=== PATIENT | male | born 1965 | race Caucasian/White ===

== ENCOUNTER → 2018-07-31 10:09 | Outpatient (CLI) | payer OTHER, SELFPAY ==
[2018-07-31 12:12] LABS: T4 Free Direct 0.85 ng/dL (0.76-1.46)
[2018-07-31 12:13] LABS: Hemoglobin A1c 5.5 % (4.2-6.3)
== END ==
PROVIDERS: Family Provider Family Medicine; PCP Family Medicine; Visit Provider Family Medicine
DX: E78.5 Hyperlipidemia, unspecified (principal); R73.01 Impaired fasting glucose
CPT/HCPCS: 36415; 83036; 84439; 84443

== ENCOUNTER → 2018-08-03 12:23 | Outpatient (CLI) | payer OTHER, SELFPAY ==
--- NOTE | 2018-08-03 12:26 | RAD_ITS ---
STUDY: X-RAY - LUMBAR SPINE REASON FOR EXAM: Male, 52 years old. Bilateral foot burning, neuropathy. TECHNIQUE: 5 view(s) of the lumbar spine were obtained. COMPARISON: 5 views of the lumbar spine June 14, 2006. Reports of that study not available for review at the time of this dictation FINDINGS: Normal lumbar lordosis. There is no substantial scoliosis. Grade 1 spondylolisthesis at L4-5 has worsened since previous exam. Metallic and well corticated invaginations of the anterior superior L2 and L3 vertebral endplates consistent with benign Schmorl's nodes. Anterior endplate spurring at the visualized lower thoracic levels and at L4-5 has mildly progressed since previous exam. Stable mild degenerative disc height narrowing at L4-5 and L5-S1. There is no demonstrated fracture. Degenerative arthroses of the lumbar facets remain most severe at L4-5. There are early degenerative changes of the upper bilateral sacral iliac joints. The soft tissue structures are unremarkable. RAD/L/S Spine Min 4 Views IMPRESSION: Degenerative changes of the spine, as detailed above, progressed since 2005. Electronically Signed: Byron Howell MD at 18:34 EDT , Service support ,
== END ==
PROVIDERS: Family Provider Family Medicine; PCP Family Medicine; Referring Provider Family Medicine; Visit Provider Family Medicine
DX: M54.5 Low back pain (principal); G57.93 Unspecified mononeuropathy of bilateral lower limbs
CPT/HCPCS: 72110

== ENCOUNTER 2018-08-17 07:25 | Day surgery (SDC) | payer OTHER, SELFPAY ==
[2018-08-17 07:41] VITALS: BP 130/83; PULSE 61; RESP 14; TEMP 36.7; O2SAT 97; BMI 30.6
--- NOTE | 2018-08-17 08:47 | HP.PCM_ITS ---
Past Medical/Surgical History - Planned Operation Planned Operative Procedure/s: cscope open access Date of Operative Procedure: 08/17/18 Permit Signed: No S.O.S: No Is This Patient Having a Total Joint: No - Previous Hospitalizations/Surgeries HX Hospitalizations: Yes - many yrs ago HX of Surgeries: 1992 right rtc repair. 1990 nasal fx Any Problems With Anesthesia: No You/Your Family Experience Fever (Hyperthermia) With Anes: No Cholinesterase deficiency: No - Cardiovascular Hx Chest Pain within Last 2 months: No Hx of Irregular Heartbeat and/or Afib: No Hx Heart Attack: No Hx Congestive Heart Failure: No Hx Rheumatic Fever: No Hx Hypertension: No Hx Internal Defibrillator: No Hx Pacemaker: No Hx Cardiac Catheterization: No Hx Cardiac Surgery/Stents/Etc.: No Hx Stress Test: No HX Edema: No Hx Pain in Legs when Walking/Leg Cramps: Yes - foot pain and lower back pain - Respiratory Chronic Cough: No HX of Shortness of Breath: No Hoarseness: No Hx Chronic Obstructive Pulmonary Disease (COPD): No Hx Asthma: No Hx Emphysema: No Hx Sleep Apnea: No Hx Oxygen Use at Home: No Hx Respiratory Tract Infection/Cold (presently): No Do You Snore Loudly (louder than talking or can be heard): No Do You Often Feel Tired/ Fatigued/ Sleepy Dring Daytime?: No Has Anyone Observed You Stop Breathing During Sleep?: No Result (for STOP score): Negative Hx Smoking: No Smoking Status: Never smoker - Gastrointestinal Hx Gastroesophageal Reflux: No Hx Gastrointestinal Disorders: No Hx Gastrointestinal Bleed: No Hx Ulcer: No Hx Hiatal Hernia: No Difficulty Chewing/Swallowing: No Recent Onset of Swallowing Problems: No Special diet followed at home: No Hx Unplanned Weight Loss of 20#: No HX Unplanned Weight Gain of 20#: No - Neurological Hx Seizures: No HX Syncope/Blackout Spells/Unconsciousness: No Hx CVA/Stroke: No Hx Transient Ischemic Attacks (TIA): No Hx Multiple Sclerosis: No Hx Parkinson's Disease: No Hx Head/Neck Injury: Yes - cervical neck fx in high school Hx Headaches: No Hx Back Injury/Pain: Yes - lower back pain/numbness to foot at times Recent Onset of Speech Difficulty: No Restless Legs: No Does patient have nerve stimulator: No Patient instructed to have device shut off: No Rep notified?: No - Blood Disorder Hx Leukemia: No Bleeding Tendencies: No Hx Deep Vein Thrombosis: No Hx High Cholesterol: Yes - on med Blood Transmitted Disease: No Hx Hepatitis: No Hx Cirrhosis: No Hx Anemia: No Hx Blood Disorders: No - Genitourinary Hx Renal Disease: No - Musculoskeletal Hx Arthritis: No Hx Rheumatoid Arthritis: No Hx Gout: No Recent Onset of an Orthopedic Problem: No - Endocrine Hx Diabetes: No Thyroid Disease: No Hx Steroid Therapy: No - Psycho/Social Hx Substance Use: No Hx Alcohol Use: Yes - occ Hx Anxiety: No Hx Depression: No Mental Illness: No Hx Dementia: No - Miscellaneous Hx Cancer: No Recent Exposure to Contagious Disease: No Active MRSA: No Hx of C-Diff: No Any Loose Teeth: No Allergies clarithromycin [From Biaxin] Allergy (Verified 08/17/18 07:40) Hives - Discharge Is Pt Admitted From a Correction, or a Custodial: No Who Could Help: family After D/C, Where Do you Plan to Go: Return Home - Physical Exam General: Alert, Oriented x3, Cooperative Lungs: Normal air movement Cardiovascular: Regular rate, Regular Rhythm Abdomen: Soft, Non Tender, Non-Distended Vital Signs Temp Pulse Resp BP Pulse Ox 98.1 F 61 14 130/83 H 97 08/17/18 07:41 08/17/18 07:41 08/17/18 07:41 08/17/18 07:41 08/17/18 07:41 Oxygen Delivery Method Room Air Weight: 231 lb 14.821 oz Body Mass Index (BMI) 30.6 Assessment/Plan Patient is a 52-year-old male for screening colonoscopy 1. Patient reports he is having no issues at this time. He is having no abdominal pain or blood in his stool. He has no family history of colon cancer but he does have a brother with Crohn's disease. He has never had a colonoscopy in the past. 2. I explained endoscopy in detail to the patient. I explained the risks including but not limited to stroke or heart attack with anesthesia, perforation of the GI tract, bleeding, infection. I explained that any of these could necessitate further emergency surgery. The patient understands and all questions were answered sufficiently. The patient wishes to proceed with procedure. Ab Rajan MD Pager: [facility] [address] [place] [address], [address] [place] [address] Office: Surgery Risks - Colonoscopy Risks Include but are not Limited To: Risks include but are not limited to: Bleeding, perforation requiring further surgery, inability to complete colonoscopy requiring barium enema.
[2018-08-17 09:14] VITALS: BP 116/79; BP 130/83; PULSE 70; RESP 16; TEMP 36.6; O2SAT 96
--- NOTE | 2018-08-17 09:18 | OP.ENDO_ITS ---
Patient Name: Kelvin Rhodes Procedure Date: 08/17/2018 8:48 AM Date of : 1965 Age: 52 Procedure: Colonoscopy Indications: Screening for colorectal malignant neoplasm Providers: Ab Rajan MD Referring MD: Ab Rajan MD Medicines: Monitored Anesthesia Care Patient Profile: This is a 52 year old male. Last Colonoscopy: none. The patient's first colonoscopy is today. Complications: No immediate complications. Procedure: Pre-Anesthesia Assessment: - Prior to the procedure, a History and Physical was performed, and patient medications and allergies were reviewed. The patient's tolerance of previous anesthesia was also reviewed. The risks and benefits of the procedure and the sedation options and risks were discussed with the patient. All questions were answered, and informed consent was obtained. Prior Anticoagulants: The patient has taken no previous anticoagulant or antiplatelet agents. After reviewing the risks and benefits, the patient was deemed in satisfactory condition to undergo the procedure. After I obtained informed consent, the scope was passed under direct vision. Throughout the procedure, the patient's blood pressure, pulse, and oxygen saturations were monitored continuously. The colonoscope was introduced through the anus and advanced to the cecum, identified by appendiceal orifice and ileocecal valve. The colonoscopy was performed without difficulty. The patient tolerated the procedure well. The quality of the bowel preparation was good. Scope In: 8:56:19 AM Scope Withdrawal Time 0 hours 6 minutes 24 seconds Scope Out: 9:08:01 AM Total Procedure Duration Time 0 hours 11 minutes 42 seconds Findings: The entire examined colon appeared normal on direct and retroflexion views. Impression: - The entire examined colon is normal on direct and retroflexion views. - No specimens collected. Recommendation: - Discharge patient to home. - Resume previous diet. - Continue present medications. - Repeat colonoscopy in 10 years for screening purposes. Procedure Code(s): --- Professional --- 63518, PT, Colonoscopy, flexible; diagnostic, including collection of specimen(s) by brushing or washing, when performed (separate procedure) Diagnosis Code(s): --- Professional --- Z12.11, Encounter for screening for malignant neoplasm of colon CPT copyright 2017 [employer]. All rights reserved. The codes documented in this report are preliminary and upon slicing machine feeder review may be revised to meet current compliance requirements. Ab Rajan MD 08/17/2018 9:17:45 AM This report has been signed electronically. Number of Addenda: 0 Note Initiated On: 08/17/2018 8:48 AM
[2018-08-17 09:19] VITALS: BP 109/87; BP 130/83; PULSE 66; RESP 16; O2SAT 100
[2018-08-17 09:24] VITALS: BP 122/91; BP 130/83; PULSE 63; RESP 16; O2SAT 96
[2018-08-17 09:29] VITALS: BP 130/83; BP 131/95; PULSE 62; RESP 16; TEMP 37.2; O2SAT 96
[2018-08-17 09:58] VITALS: BP 130/83
== END 2018-08-17 10:00 | disposition home or self-care (01) ==
LOC: EN 07:26 → AC 07:27
PROVIDERS: Family Provider Family Medicine; PCP Family Medicine; Referring Provider Surgery; Visit Provider Surgery
PROC: 0DJD8ZZ Inspection of Lower Intestinal Tract, Via Natural or Artificial Opening Endoscopic (ICD-10-PCS; CPT 45378; principal; 2018-08-17 08:25)
DX: Z12.11 Encounter for screening for malignant neoplasm of colon (principal); E78.00 Pure hypercholesterolemia, unspecified; Z79.899 Other long term (current) drug therapy
CPT/HCPCS: 45378; J7120

== ENCOUNTER → 2019-03-06 | Outpatient (CLI) | payer OTHER, SELFPAY ==
--- NOTE | 2019-03-06 10:41 | NEURO_ITS ---
NCS and/or EMG Patient Report Ordering Doctor: Hilario Rogers DATE OF SERVICE: 03/06/19 This is a EMG and nerve conduction study of the bilateral lower extremities performed on this 53-year-old male with a one-year history of back discomfort associated with discomfort in his feet and legs. He also has cramping in his c detention muscles. There is no history of diabetes or significant alcohol intake, and he is healthy otherwise. He says he has had plain films of his lower back which demonstrated degenerative changes. Bilateral lower extremity sensory and motor nerve conduction studies performed. The common peroneal motor conduction velocities are suppressed bilaterally with prolonged latencies and reduced amplitudes. The tibial motor conduction velocities are borderline with prolonged latencies and low amplitudes. The sural sensory and medial and lateral plantar sensory distal latencies and amplitudes are relatively preserved. F-wave responses from the tibial and common peroneal nerves bilaterally are prolonged and there is suppression of tibial H reflex responses bilaterally. Bilateral lower extremity needle electromyography is performed. Muscles evaluated included the extensor digitorum brevis, abductor hallucis, medial gastrocnemius, anterior tibialis, vastus medialis and vastus lateralis muscles. The small muscles of the feet did demonstrate large motor units, this abnormality resolved more proximally consistent with length dependent polyneuropathy. In addition there is 1-2+ fibrillation potentials in the left medial gastrocnemius and 1+ fibrillation potentials in the right medial gastrocnemius. All other muscles more approximately demonstrated absence of pathologic spontaneous activity. Impression: This is an abnormal electrophysiologic study of the bilateral lower extremities consistent with S1 radiculopathy with superimposed peripheral neuropathy. Other investigations could include an MRI of the lumbar spine as well as neuropathy studies including liver panel, complete metabolic panel, serum and urine protein electrophoresis as well as inflammatory markers.
== END | disposition home or self-care (01) ==
LOC: PSN 07:45
PROVIDERS: Family Provider Family Medicine; PCP Family Medicine; Referring Provider Podiatrist; Visit Provider Podiatrist
DX: G62.9 Polyneuropathy, unspecified (principal)
CPT/HCPCS: 95886; 95911

== ENCOUNTER → 2019-07-02 | Outpatient (CLI) | payer OTHER, SELFPAY ==
--- NOTE | 2019-07-02 12:36 | MRI_ITS ---
STUDY: MRI LUMBAR SPINE WITHOUT CONTRAST REASON FOR EXAM: Male, 53 years old. Low back pain. Numbness. TECHNIQUE: Standardized fat and water weighted pulse sequences were obtained in the sagittal and axial planes. COMPARISON: X-rays dated August 03, 2018. FINDINGS: Lumbar lordosis preserved. No significant scoliosis. Conus medullaris terminates high at the T11-12 level. No acute fracture line. No acute dislocation. No acute bone destruction. Multiple level diffuse endplate spondylosis with Schmorl's nodes. T12-L1: Mild disc desiccation. Facet joint arthrosis. Normal central canal and bilateral lateral recesses. Normal bilateral intervertebral neural foramina. L1-2: Disc bulge with mild central canal narrowing. Facet joint arthrosis. Normal bilateral lateral recesses. Bilateral neural foraminal narrowing without impingement. L2-3: Disc bulge with moderate central narrowing. Facet joint arthrosis. Bilateral lateral recess narrowing without impingement. Bilateral neural foraminal narrowing without impingement. Epidural fat contributes to central canal narrowing. L3-4: Disc bulge with moderate/severe central canal narrowing. Facet joint arthrosis. Bilateral lateral recess narrowing with impingement. Bilateral neural foraminal narrowing with impingement on the right. Epidural fat contributes to central canal narrowing. L4-5: Disc bulge/uncovering with severe central canal narrowing. Facet joint arthrosis. Bilateral lateral recess narrowing with impingement. Bilateral neural foraminal narrowing with early bilateral nerve root contact. Grade 1 spondylolisthesis. L5-S1: Disc bulge with mild central canal narrowing. Facet joint arthrosis. Normal bilateral lateral recesses. Bilateral neural foramina narrowing without impingement. Normal paraspinal muscles. Normal aorta. Normal retroperitoneum. MRI/Spine Lumbar (Routine) IMPRESSION: Multilevel intervertebral disc disease with severe central canal narrowing at L4-5 Multilevel neural femoral narrowing with impingement of the right L3 and bilateral L4 nerve roots Multilevel lateral recess narrowing with impingement of the bilateral descending L5 nerve roots Multilevel endplate spondylosis, Schmorl's nodes and facet joint arthrosis Grade 1 degenerative spondylolisthesis at L4-5 Electronically Signed: Ilir Tijerina DO at 14:14 EDT Tel , Service support ,
== END | disposition home or self-care (01) ==
LOC: MRI 12:20
PROVIDERS: Family Provider Family Medicine; PCP Family Medicine; Referring Provider Orthopaedic Surgery; Visit Provider Orthopaedic Surgery
DX: M43.16 Spondylolisthesis, lumbar region (principal)
CPT/HCPCS: 72148

== ENCOUNTER → 2019-10-21 14:07 | Outpatient (CLI) | payer OTHER, SELFPAY ==
[2019-10-21 15:09] LABS: Absolute Lymphocyte Count 1.77 X10^3/uL (0.83-4.51); Absolute Neutrophil Count 2.8 X10^3/uL (2.0-7.7); Basophil# 0.04 X10^3/uL; Basophil% 0.7 % (0-1); Eosinophil# 0.14 X10^3/uL; Eosinophils% 2.6 % (0-5); Hematocrit 46.5 % (40-54); Hemoglobin 14.8 g/dL (13.0-16.5); Lymphocyte # 1.77 X10^3/ul (4.0); Lymphocyte % 32.3 % (19-41); Mean Corp Hgb Conc 31.8 g/dL (32-36); Mean Corpuscular Hgb 28.7 pg (27.0-32.0); Mean Corpuscular Volume 90.3 fL (80-94); Mean Platelet Vol. 10.1 fl (6.2-12.0); Monocyte# 0.71 X10^3/uL; NRBC Flagged by Analyzer 0 % (0-5); Platelet Count 213 K/mm3 (150-450); RBC Distribution Width CV 13.9 % (11.6-14.6); RBC Distribution Width SD 46.2 fl (35.1-43.9); Red Blood Count 5.15 M/mm3 (4.6-6.2); White Blood Count 5.5 K/mm3 (4.4-11.0)
== END ==
PROVIDERS: Family Provider Family Medicine; PCP Family Medicine
DX: Z01.812 Encounter for preprocedural laboratory examination (principal); M43.16 Spondylolisthesis, lumbar region
CPT/HCPCS: 36415; 85025

== ENCOUNTER → 2021-04-13 09:03 | Outpatient (CLI) | payer OTHER, SELFPAY ==
[2021-04-13 10:34] LABS: ALB/GLOB Ratio 1.3 RATIO (0.9-2.4); AST(SGOT) 43 U/L (15-37); Alanine Aminotransfer ALT/SGPT 67 U/L (16-61); Albumin, Serum 4.1 g/dL (3.2-5.0); Alkaline Phosphatase 75 U/L (45-117); Anion Gap 3 (5-15); BUN 17 mg/dL (7-18); BUN/Creat Ratio 14.8 RATIO (10-20); Calcium,Total 8.8 mg/dL (8.5-10.1); Chloride 107 mmol/L (98-107); Cholesterol 227 mg/dL (200); Creatinine, Serum 1.15 mg/dL (0.70-1.30); EST Glomerular Filtration Rate 71 mL/min (>60); Est Glom Filt Rate - Afr Amer 85 mL/min (>60); Globulin 3.2 g/dL (2.2-4.2); Glucose 97 mg/dL (74-106); High Density Lipoprotein 56 mg/dL; Potassium 4.3 mmol/L (3.5-5.1); Protein, Total 7.3 g/dL (6.4-8.2); Sodium Level 141 mmol/L (136-145); Triglycerides 109 mg/dL; Very Low Density Lipoprotein 22 mg/dL (5-40)
[2021-04-15 14:16] LABS: Anti-Nuclear Antibody Test Negative (.)
== END ==
PROVIDERS: PCP Family Medicine; Referring Provider Family Medicine; Visit Provider Family Medicine
DX: E78.5 Hyperlipidemia, unspecified (principal); M35.00 Sjogren syndrome, unspecified
CPT/HCPCS: 36415; 80053; 80061; 86038

== ENCOUNTER → 2021-08-09 16:26 | Outpatient (CLI) | payer OTHER, SELFPAY ==
[2021-08-09 17:55] LABS: Basophil# 0.02 X10^3/uL; Basophil% 0.4 % (0-1); Eosinophil# 0.07 X10^3/uL; Eosinophils% 1.3 % (0-5); Hematocrit 44.9 % (40-54); Hemoglobin 14.5 g/dL (13.0-16.5); Lymphocyte % 28.8 % (19-41); Mean Corp Hgb Conc 32.3 g/dL (32-36); Mean Corpuscular Hgb 29.1 pg (27.0-32.0); Mean Corpuscular Volume 90.2 fL (80-94); Mean Platelet Vol. 10.4 fl (6.2-12.0); Monocyte# 0.62 X10^3/uL; Monocyte% 11.9 % (0-10); NRBC Flagged by Analyzer 0 % (0-5); Neutrophil # 2.99 X10^3/uL (2.7-7.7); Neutrophil % 57.4 % (47-70); Platelet Count 208 K/mm3 (150-450); RBC Distribution Width CV 13.5 % (11.6-14.6); RBC Distribution Width SD 44.6 fl (35.1-43.9); Red Blood Count 4.98 M/mm3 (4.6-6.2); White Blood Count 5.2 K/mm3 (4.4-11.0)
[2021-08-09 18:21] LABS: ALB/GLOB Ratio 1.1 RATIO (0.9-2.4); AST(SGOT) 26 U/L (15-37); Alanine Aminotransfer ALT/SGPT 61 U/L (16-61); Albumin, Serum 3.7 g/dL (3.2-5.0); Alkaline Phosphatase 67 U/L (45-117); Anion Gap 6 (5-15); BUN 17 mg/dL (7-18); CPK Total, Creatine Kinase 378 U/L (39-308); Calcium,Total 8.9 mg/dL (8.5-10.1); Chloride 104 mmol/L (98-107); Cholesterol 208 mg/dL (200); Creatinine, Serum 1.06 mg/dL (0.70-1.30); EST Glomerular Filtration Rate 78 mL/min (>60); Est Glom Filt Rate - Afr Amer 94 mL/min (>60); Ferritin 89 ng/mL (26-388); Globulin 3.5 g/dL (2.2-4.2); Glucose 98 mg/dL (74-106); High Density Lipoprotein 42 mg/dL; Magnesium 2.2 mg/dL (1.6-2.6); Potassium 4.1 mmol/L (3.5-5.1); Protein, Total 7.2 g/dL (6.4-8.2); Sodium Level 139 mmol/L (136-145); Triglycerides 265 mg/dL; Very Low Density Lipoprotein 53 mg/dL (5-40)
[2021-08-09 18:28] LABS: Hemoglobin A1c 5.6 % (3.8-5.6)
[2021-08-09 18:32] LABS: Vitamin B12 524 pg/mL (211-911)
[2021-08-16 13:07] LABS: VITAMIN B6 36.4 ug/L (5.3-46.7)
[2021-08-16 14:18] LABS: Vitamin B1, Thiamine 142.2 nmol/L (66.5-200.0)
== END ==
PROVIDERS: PCP Family Medicine; Referring Provider Family Medicine; Visit Provider Family Medicine
DX: G62.9 Polyneuropathy, unspecified (principal); R25.2 Cramp and spasm; E78.00 Pure hypercholesterolemia, unspecified
CPT/HCPCS: 36415; 80053; 80061; 82550; 82607; 82728; 83036; 83735; 84207; 84425; 85025

== ENCOUNTER → 2022-08-17 | Outpatient (CLI) | payer OTHER, SELFPAY ==
[2022-08-17 10:44] LABS: ALB/GLOB Ratio 1.2 RATIO (0.9-2.4); AST(SGOT) 31 U/L (15-37); Alanine Aminotransfer ALT/SGPT 58 U/L (16-61); Alkaline Phosphatase 74 U/L (45-117); Anion Gap 6 (5-15); BUN 14 mg/dL (7-18); BUN/Creat Ratio 13.1 RATIO (10-20); Calcium,Total 9.3 mg/dL (8.5-10.1); Chloride 104 mmol/L (98-107); Cholesterol 187 mg/dL (200); Creatinine, Serum 1.07 mg/dL (0.70-1.30); EST Glomerular Filtration Rate 76 mL/min (>60); Est Glom Filt Rate - Afr Amer 92 mL/min (>60); Globulin 3.3 g/dL (2.2-4.2); Glucose 104 mg/dL (74-106); High Density Lipoprotein 53 mg/dL; Potassium 4.3 mmol/L (3.5-5.1); Protein, Total 7.3 g/dL (6.4-8.2); Sodium Level 138 mmol/L (136-145); Triglycerides 92 mg/dL; Very Low Density Lipoprotein 18 mg/dL (5-40)
[2022-08-18 11:19] LABS: Hemoglobin A1c 5.8 % (3.8-5.6)
== END | disposition home or self-care (01) ==
LOC: MFPLAB 08:03
PROVIDERS: PCP Family Medicine; Referring Provider Family Medicine; Visit Provider Family Medicine
DX: E78.00 Pure hypercholesterolemia, unspecified (principal); R73.02 Impaired glucose tolerance (oral)
CPT/HCPCS: 36415; 80053; 80061; 83036

== ENCOUNTER → 2022-11-02 | Outpatient (CLI) | payer OTHER, SELFPAY ==
--- NOTE | 2022-11-02 13:18 | NEURO ---
NCS and/or EMG Patient Report Ordering Doctor: August Vo DATE OF SERVICE: 11/02/22 Kelvin presents for electrodiagnostic testing of the lower limbs. Reports numbness and tingling in both feet. He has a history of lumbar spine surgery in 2019. Electrodiagnostic Findings: Peroneal motor nerve demonstrates normal distal latency, amplitude and conduction velocity. Left peroneal motor nerve demonstrates prolonged distal latency with reduced amplitude and normal conduction. Tibial motor response demonstrates decreased amplitude on the left side. Prolonged peroneal and tibial F waves bilaterally. Prolonged H reflex bilaterally. Prolonged left sural latency. Prolonged right superficial peroneal latency. On needle EMG, all muscles tested in the lower limbs showed no evidence of denervation with normal motor unit action potentials. Electrodiagnostic impression: This is an abnormal study in the lower limbs 1. Electrodiagnostic findings are suggestive of polyneuropathy with motor and sensory nerve involvement. These have progressed from a previous study performed on March 06, 2019. This includes further reduction of tibial motor amplitudes. 2. No electrodiagnostic evidence is noted for lumbosacral radiculopathy.
== END | disposition home or self-care (01) ==
LOC: PSN 06:16
PROVIDERS: PCP Family Medicine; Referring Provider Family Medicine; Visit Provider Family Medicine
DX: G62.9 Polyneuropathy, unspecified (principal); R20.0 Anesthesia of skin; R20.2 Paresthesia of skin
CPT/HCPCS: 95886; 95913

== ENCOUNTER → 2022-12-22 | Outpatient (CLI) | payer OTHER, SELFPAY ==
[2022-12-22 10:13] LABS: Absolute Lymphocyte Count 1.32 X10^3/uL (0.83-4.51); Absolute Neutrophil Count 2.1 X10^3/uL (2.0-7.7); Basophil# 0.03 X10^3/uL; Basophil% 0.7 % (0-1); Eosinophil# 0.09 X10^3/uL; Eosinophils% 2.2 % (0-5); Hematocrit 46.4 % (40-54); Lymphocyte # 1.32 X10^3/ul (0.83-4.51); Lymphocyte % 31.9 % (19-41); Mean Corp Hgb Conc 32.3 g/dL (32-36); Mean Corpuscular Hgb 29.5 pg (27.0-32.0); Mean Corpuscular Volume 91.3 fL (80-94); Mean Platelet Vol. 10.3 fl (6.2-12.0); Monocyte# 0.59 X10^3/uL; Monocyte% 14.3 % (0-10); NRBC Flagged by Analyzer 0 % (0-5); Neutrophil # 2.11 X10^3/uL (2.7-7.7); Neutrophil % 50.9 % (47-70); Platelet Count 204 K/mm3 (150-450); RBC Distribution Width CV 13.9 % (11.6-14.6); RBC Distribution Width SD 47.1 fl (35.1-43.9); Red Blood Count 5.08 M/mm3 (4.6-6.2); White Blood Count 4.1 K/mm3 (4.4-11.0)
[2022-12-22 10:25] LABS: Cholesterol 153 mg/dL (200); High Density Lipoprotein 50 mg/dL; Triglycerides 97 mg/dL; Very Low Density Lipoprotein 19 mg/dL (5-40)
[2022-12-22 10:33] LABS: Hemoglobin A1c 5.5 % (3.8-5.6)
== END | disposition home or self-care (01) ==
LOC: MTLAB 07:09
PROVIDERS: PCP Family Medicine; Referring Provider Family Medicine; Visit Provider Family Medicine
DX: E78.00 Pure hypercholesterolemia, unspecified (principal); R73.02 Impaired glucose tolerance (oral)
CPT/HCPCS: 36415; 80061; 83036; 85025

== ENCOUNTER → 2023-02-24 | Outpatient (CLI) | payer OTHER, SELFPAY ==
[2023-02-24 10:25] LABS: Vitamin B12 452 pg/mL (211-911)
[2023-02-24 11:25] LABS: Rheumatoid Factor < 10.0 IU/mL (<15); Thyroid Stim Hormone (TSH) 1.84 uIU/mL (0.358-3.74)
[2023-02-27 16:09] LABS: Albumin 4.1 g/dL (2.9-4.4); Alpha-1-Globulins 0.2 g/dL (0.0-0.4); Alpha-2-Globulins 0.6 g/dL (0.4-1.0); CCP IgG Antibodies 8 units (0-19); Gamma Globulin 0.8 g/dL (0.4-1.8); Immunoglobulin A 141 mg/dL (90-386); Immunoglobulin G 859 mg/dL (603-1613); Immunoglobulin M 80 mg/dL (20-172); PROEL- TOTAL PROTEIN 6.6 g/dL (6.0-8.5)
[2023-03-02 00:07] LABS: ANTINUCLEAR ANTIBODIES DIRECT Negative (Negative); Methylmalonic Acid Bld 228 nmol/L (0-378); RNP Ab 0.2 AI (0.0-0.9); Smith Ab <0.2 AI (0.0-0.9)
== END | disposition home or self-care (01) ==
LOC: MTLAB 07:23
PROVIDERS: PCP Family Medicine; Referring Provider Psychiatry & Neurology Neurology; Visit Provider Psychiatry & Neurology Neurology
DX: G62.9 Polyneuropathy, unspecified (principal)
CPT/HCPCS: 36415; 82607; 82746; 82784; 83921; 84165; 84443; 86038; 86200; 86235; 86334; 86431

== ENCOUNTER → 2023-05-19 | Outpatient (CLI) | payer OTHER, SELFPAY | END | disposition home or self-care (01) | LOC: LAB 07:27 | PROVIDERS: PCP Family Medicine; Referring Provider Ophthalmology; Visit Provider Ophthalmology | DX: Z00.00 Encounter for general adult medical examination without abnormal findings (principal) ==

== ENCOUNTER → 2023-05-29 | Outpatient (CLI) | payer OTHER, SELFPAY ==
[2023-05-29 10:55] LABS: Absolute Lymphocyte Count 1.54 X10^3/uL (0.83-4.51); Absolute Neutrophil Count 1.9 X10^3/uL (2.0-7.7); Basophil# 0.03 X10^3/uL; Basophil% 0.7 % (0-1); Eosinophil# 0.06 X10^3/uL; Eosinophils% 1.5 % (0-5); Hematocrit 43.7 % (40-54); Hemoglobin 14.2 g/dL (13.0-16.5); Lymphocyte # 1.54 X10^3/ul (0.83-4.51); Lymphocyte % 38.1 % (19-41); Mean Corp Hgb Conc 32.5 g/dL (32-36); Mean Corpuscular Hgb 29.5 pg (27.0-32.0); Mean Corpuscular Volume 90.9 fL (80-94); Mean Platelet Vol. 10.3 fl (6.2-12.0); Monocyte# 0.54 X10^3/uL; Monocyte% 13.4 % (0-10); NRBC Flagged by Analyzer 0 % (0-5); Neutrophil # 1.86 X10^3/uL (2.7-7.7); Neutrophil % 46.1 % (47-70); Platelet Count 204 K/mm3 (150-450); RBC Distribution Width CV 14.1 % (11.6-14.6); Red Blood Count 4.81 M/mm3 (4.6-6.2)
[2023-05-29 11:34] LABS: Hemoglobin A1c 5.6 % (3.8-5.6)
[2023-05-29 11:40] LABS: ALB/GLOB Ratio 1.3 RATIO (0.9-2.4); AST(SGOT) 29 U/L (15-37); Alanine Aminotransfer ALT/SGPT 57 U/L (16-61); Albumin, Serum 3.9 g/dL (3.2-5.0); Alkaline Phosphatase 70 U/L (45-117); Anion Gap 3 (5-15); BUN 21 mg/dL (7-18); BUN/Creat Ratio 19.8 RATIO (10-20); Calcium,Total 8.7 mg/dL (8.5-10.1); Chloride 108 mmol/L (98-107); Cholesterol 177 mg/dL (200); Creatinine, Serum 1.06 mg/dL (0.70-1.30); EST Glomerular Filtration Rate 77 mL/min (>60); Est Glom Filt Rate - Afr Amer 93 mL/min (>60); Globulin 2.9 g/dL (2.2-4.2); Glucose 97 mg/dL (74-106); High Density Lipoprotein 52 mg/dL; Potassium 4.1 mmol/L (3.5-5.1); Protein, Total 6.8 g/dL (6.4-8.2); Sodium Level 140 mmol/L (136-145); Triglycerides 126 mg/dL; Very Low Density Lipoprotein 25 mg/dL (5-40)
[2023-05-29 11:48] LABS: PSA,Total - Annual Screen 0.31 ng/mL (0.00-4.00)
== END | disposition home or self-care (01) ==
PROVIDERS: PCP Family Medicine; Referring Provider Family Medicine; Visit Provider Family Medicine
DX: E78.00 Pure hypercholesterolemia, unspecified (principal); R73.02 Impaired glucose tolerance (oral); Z12.5 Encounter for screening for malignant neoplasm of prostate
CPT/HCPCS: 36415; 80053; 80061; 83036; 84153; 85025; G0103

== ENCOUNTER → 2023-09-13 | Outpatient (CLI) | payer OTHER, SELFPAY ==
[2023-09-13 10:48] LABS: ALB/GLOB Ratio 1.3 RATIO (0.9-2.4); AST(SGOT) 41 U/L (15-37); Alanine Aminotransfer ALT/SGPT 74 U/L (16-61); Albumin, Serum 4.2 g/dL (3.2-5.0); Alkaline Phosphatase 72 U/L (45-117); Anion Gap 4 (5-15); BUN 14 mg/dL (7-18); BUN/Creat Ratio 12.2 RATIO (10-20); Calcium,Total 9.3 mg/dL (8.5-10.1); Chloride 105 mmol/L (98-107); Cholesterol 196 mg/dL (200); Creatinine, Serum 1.15 mg/dL (0.70-1.30); EST Glomerular Filtration Rate 70 mL/min (>60); Est Glom Filt Rate - Afr Amer 85 mL/min (>60); Globulin 3.2 g/dL (2.2-4.2); Glucose 92 mg/dL (74-106); High Density Lipoprotein 60 mg/dL; Protein, Total 7.4 g/dL (6.4-8.2); Sodium Level 139 mmol/L (136-145); Triglycerides 106 mg/dL; Very Low Density Lipoprotein 21 mg/dL (5-40)
[2023-09-13 11:21] LABS: Hemoglobin A1c 5.7 % (3.8-5.6)
== END | disposition home or self-care (01) ==
PROVIDERS: PCP Family Medicine; Referring Provider Family Medicine; Visit Provider Family Medicine
DX: E78.00 Pure hypercholesterolemia, unspecified (principal); R73.02 Impaired glucose tolerance (oral)
CPT/HCPCS: 36415; 80053; 80061; 83036

== ENCOUNTER 2023-10-04 06:59 | Outpatient (CLI) | payer OTHER, SELFPAY | END 2023-10-04 23:59 | disposition home or self-care (01) | PROVIDERS: PCP Family Medicine; Referring Provider Ophthalmology; Visit Provider Ophthalmology | DX: H16.141 Punctate keratitis, right eye (principal) | CPT/HCPCS: 36415 ==

== ENCOUNTER → 2024-01-18 | Outpatient (CLI) | payer OTHER, SELFPAY ==
--- OUTSIDE RECORDS SUMMARY | 2024-01-18 08:28 | XMS RPT_ITS | CCD ---
Author Name Unknown Address [id number] [place] [address] Organization [facility] Care Team Providers Care Visitor Information Assistant Name Role Phone Pcp, No Primary Care Provider Unavailabl e Allergies Allergy Classification Reported Allergen(s) Allergy Type Date of Onset Reaction(s) Facility (1 source) Clarithromycin Drug Allergy 9 Rash, Hives, Itching [facility] Work Phone: (1 source) Seasonal allergy Allergy to substance 2 Other: See Comments [facility] Medications Completed/Discontinued Medications Medication Drug Class(es) Dates Sig (Normalized) Sig (Original) ascorbic acid 500 mg oral tablet (1 source) Vitamin C take 1 tablet by maggie th once daily ascorbic acid (VITAMIN C) 500 mg tablet Take 500 mg by mouth once daily. 0 Active Problems Active Problems Problem Classification Problem Date Documented Da te Episodic/Chronic Disorders of lipid metabolism (1 source) Hypercholesterolemi a; Translations: [Pure hypercholesterolemi a, unspecified] Onset: 07-16-2009 08-31-2012 Chronic Other eye disorders (1 source) Dry eyes; Translations: [Dry eye syndrome of bilateral lacrimal glands] 08-31-2012 Episodic Other eye disorders (1 source) Malposition of eyelashes; Translations: [Trichiasis without entropion unspecified eye, unspecified eyelid] 08-31-2012 Episodic Other inflammatory condition of skin (1 source) Rosacea, unspecified; Translations: [Rosacea conjunctivitis] 08-31-2012 Chronic Other upper respiratory disease (1 source) Seasonal allergy; Translations: [Other seasonal allergic rhinitis] Onset: 07-16-2009 09-18-2011 Chronic Past or Other Problems Problem Classification Problem Date Documented Da te Episodic/Chronic Other nutritional; endocrine; and metabolic disorders (1 source) Overweight; Translations: [Overweight] Onset: 07-16-2009 09-18-2011 Episodic Residual codes; unclassified (1 source) Family history of ischemic heart disease; Translations: [Family history of ischemic heart disease and other diseases of the circulatory system] Onset: 07-16-2009 09-18-2011 Episodic Residual codes; unclassified (1 source) Family history of diabetes mellitus; Translations: [Family history of diabetes mellitus] Onset: 07-16-2009 09-18-2011 Episodic Encounters Encounter Date Encounter Type Care Provider Facility Start: 08-23-2021 End: 08-23-2021 Telephone encounter Rodney Valencia MD Work Phone: General Surgery Plan of Treatment Date Care Activity Detail Author Start: 07-07-2021 Influenza vaccination INFLUENZA (#1) [facility] Start: 2017 SHINGRIX VACCINE (1 of 2) SHINGRIX V ACCINE (1 of 2) [facility] Start: 11-05-2017 LIPID SCREEN LIPID SCREEN [facility] Start: 11-05-2015 DIABETES SCREEN DIABETES SCREEN [facility] Start: 2012 COLOGUARD (FIT-DNA) COLOGUARD (FIT-D NA) [facility] Start: 2012 Colonoscopy COLONOSCOPY [facility] Start: 2012 COLORECTAL CANCER SCREENING COLORECTAL CANCER SCREENING [facility] Start: [address] COLONOGRAPHY [facility] Start: 2012 FECAL OCCULT BLOOD FECAL OCCULT BLOO D [facility] Start: 2012 SIGMOIDOSCOPY SIGMOIDOSCOPY [facility] Start: 1986 Urine microalbumin profile DTAP,TDAP ,TD (1 - Tdap) [facility] Start: 1985 HEPATITIS C SCREENING HEPATITIS C SC REENING [facility] Start: 1985 HIV SCREENING HIV SCREENING [facility] Start: 1979 Adult depression scr ning assessment DEPRESSION SCREENING [facility] Start: 1979 COVID-19 VACCINE (1) COVID-19 VACCIN E (1) [facility] Payers Date Payer Category Payer Unknown [employer] C[employer] PPO OOS [id number] 2010-Present PPO [id number] Social History Date Type Detail Facility Start: 01-10-2013 Tobacco smoking stat us NHIS Never smoker [facility] Start: 01-10-2013 Tobacco use and exposure Never used [facility] Start: 01-10-2013 Alcohol intake Current drinke r of alcohol (finding) [facility] Start[facility] 01[facility]10-[facility] Start: 07-16-2009 History SDOH Alcohol Comment occasional, wine only [facility] Start: 1965 Sex Assigned At Not on file C [facility] Clinic Note 08-23-2021 Telephone Encounter - Eva Rubio RN - 08/23/2021 11:28 AM EDT Note Date & Type Note Facility 08-23-2021 Miscellaneous Notes Received a request from [facility] for a copy of Kelvin's colonoscopy and pathology report. I am unable to locate any testing completed by our office for this patient. Note returned to [facility] stating this. Fax confirmation received. Eva Rubio RN documented in this encounter [facility] Additional Source Comments Source Comments (unrecognize d section and content) In the event this informatio n is protected by the Federal Confidentiality of Alcohol and Drug Abuse Patient Records regulations: The Federal rules restrict any use of the information to criminally investigate or prosecute any alcohol or drug abuse patient.[facility] Reason for Visit (unrecogniz ed section and content) FOR RECORDS PERTAINING TO PATIENTS WHO ARE OR HAVE BEEN ENROLLED IN A CHEMICAL DEPENDENCY/SUBSTANCEABUSE PROGRAM, SOME INFORMATION MAY BE OMITTED. This clinical summary was aggregated from multiple sources. Caution should be exercised in using it in the provision of clinical care. This summary normalizes information from multiple sources, and as a consequence, information in this document may materially change the coding, format and clinical context of patient data. In addition, data may be omitted in some cases. CLINICAL DECISIONS SHOULD BE BASED ON THE PRIMARY CLINICAL RECORDS. [employer] [facility]. provides no warranty or guarantee of the accuracy or completeness of information in this document.
[2024-01-18 11:34] LABS: ALB/GLOB Ratio 1.2 RATIO (0.9-2.4); AST(SGOT) 34 U/L (15-37); Alanine Aminotransfer ALT/SGPT 70 U/L (16-61); Albumin, Serum 3.9 g/dL (3.2-5.0); Alkaline Phosphatase 64 U/L (45-117); Anion Gap 6 (5-15); BUN 20 mg/dL (7-18); BUN/Creat Ratio 16.3 RATIO (10-20); Calcium,Total 9.4 mg/dL (8.5-10.1); Chloride 106 mmol/L (98-107); Cholesterol 153 mg/dL (200); Creatinine, Serum 1.23 mg/dL (0.70-1.30); EST Glomerular Filtration Rate 65 mL/min (>60); Est Glom Filt Rate - Afr Amer 78 mL/min (>60); Globulin 3.2 g/dL (2.2-4.2); Glucose 100 mg/dL (74-106); High Density Lipoprotein 47 mg/dL; Protein, Total 7.1 g/dL (6.4-8.2); Sodium Level 140 mmol/L (136-145); Triglycerides 105 mg/dL; Very Low Density Lipoprotein 21 mg/dL (5-40)
[2024-01-18 14:36] LABS: Hemoglobin A1c 5.6 % (3.8-5.6)
== END | disposition home or self-care (01) ==
LOC: MTLAB 08:09
PROVIDERS: PCP Family Medicine; Referring Provider Family Medicine; Visit Provider Family Medicine
DX: R73.02 Impaired glucose tolerance (oral) (principal); E78.00 Pure hypercholesterolemia, unspecified
CPT/HCPCS: 36415; 80053; 80061; 83036

== ENCOUNTER → 2024-03-14 | Outpatient (CLI) | payer SELFPAY ==
[2024-03-14 14:59] LABS: SERUM TEARS COLLECTION SPECIMEN PROCESSED
== END | disposition home or self-care (01) ==
PROVIDERS: PCP Family Medicine; Referring Provider Ophthalmology; Visit Provider Ophthalmology
DX: H16.141 Punctate keratitis, right eye (principal)

== ENCOUNTER → 2024-04-24 | Outpatient (CLI) | payer OTHER, SELFPAY ==
[2024-04-24 12:21] LABS: Absolute Lymphocyte Count 1.67 X10^3/uL (0.83-4.51); Absolute Neutrophil Count 2.3 X10^3/uL (2.0-7.7); Basophil# 0.03 X10^3/uL; Basophil% 0.6 % (0-1); Eosinophil# 0.09 X10^3/uL; Eosinophils% 1.9 % (0-5); Hematocrit 46.9 % (40-54); Hemoglobin 14.9 g/dL (13.0-16.5); Lymphocyte # 1.67 X10^3/ul (0.83-4.51); Lymphocyte % 36.1 % (19-41); Mean Corp Hgb Conc 31.8 g/dL (32-36); Mean Corpuscular Hgb 28.5 pg (27.0-32.0); Mean Corpuscular Volume 89.8 fL (80-94); Mean Platelet Vol. 10.3 fl (6.2-12.0); Monocyte# 0.56 X10^3/uL; Monocyte% 12.1 % (0-10); NRBC Flagged by Analyzer 0 % (0-5); Neutrophil # 2.26 X10^3/uL (2.7-7.7); Neutrophil % 49.1 % (47-70); Platelet Count 211 K/mm3 (150-450); RBC Distribution Width CV 14.3 % (11.6-14.6); RBC Distribution Width SD 46.7 fl (35.1-43.9); Red Blood Count 5.22 M/mm3 (4.6-6.2); White Blood Count 4.6 K/mm3 (4.4-11.0)
[2024-04-24 12:58] LABS: ALB/GLOB Ratio 1.1 RATIO (0.9-2.4); AST(SGOT) 47 U/L (15-37); Alanine Aminotransfer ALT/SGPT 73 U/L (16-61); Alkaline Phosphatase 65 U/L (45-117); Anion Gap 6 (5-15); BUN 16 mg/dL (7-18); BUN/Creat Ratio 15.4 RATIO (10-20); Calcium,Total 9.5 mg/dL (8.5-10.1); Chloride 106 mmol/L (98-107); Cholesterol 206 mg/dL (200); Creatinine, Serum 1.04 mg/dL (0.70-1.30); EST Glomerular Filtration Rate 78 mL/min (>60); Est Glom Filt Rate - Afr Amer 95 mL/min (>60); Globulin 3.5 g/dL (2.2-4.2); Glucose 104 mg/dL (74-106); High Density Lipoprotein 56 mg/dL; Potassium 4.1 mmol/L (3.5-5.1); Protein, Total 7.5 g/dL (6.4-8.2); Sodium Level 139 mmol/L (136-145); Triglycerides 104 mg/dL; Very Low Density Lipoprotein 21 mg/dL (5-40)
[2024-04-24 13:17] LABS: Hemoglobin A1c 5.7 % (3.8-5.6)
== END | disposition home or self-care (01) ==
LOC: MTLAB 09:54
PROVIDERS: PCP Family Medicine; Referring Provider Family Medicine; Visit Provider Family Medicine
DX: E78.00 Pure hypercholesterolemia, unspecified (principal); R73.02 Impaired glucose tolerance (oral)
CPT/HCPCS: 36415; 80053; 80061; 83036; 85025

== ENCOUNTER → 2024-08-23 | Outpatient (CLI) | payer OTHER, SELFPAY ==
[2024-08-23 10:38] LABS: Absolute Lymphocyte Count 1.47 X10^3/uL (0.83-4.51); Absolute Neutrophil Count 2.1 X10^3/uL (2.0-7.7); Basophil# 0.02 X10^3/uL; Basophil% 0.5 % (0-1); Eosinophil# 0.06 X10^3/uL; Eosinophils% 1.4 % (0-5); Hematocrit 45.4 % (40-54); Hemoglobin 14.5 g/dL (13.0-16.5); Lymphocyte # 1.47 X10^3/ul (0.83-4.51); Lymphocyte % 34.9 % (19-41); Mean Corp Hgb Conc 31.9 g/dL (32-36); Mean Corpuscular Volume 90.8 fL (80-94); Mean Platelet Vol. 10.5 fl (6.2-12.0); Monocyte# 0.57 X10^3/uL; Monocyte% 13.5 % (0-10); NRBC Flagged by Analyzer 0 % (0-5); Neutrophil # 2.08 X10^3/uL (2.7-7.7); Neutrophil % 49.5 % (47-70); Platelet Count 214 K/mm3 (150-450); RBC Distribution Width CV 14.3 % (11.6-14.6); RBC Distribution Width SD 47.6 fl (35.1-43.9); White Blood Count 4.2 K/mm3 (4.4-11.0)
[2024-08-23 11:32] LABS: ALB/GLOB Ratio 1.3 RATIO (0.9-2.4); AST(SGOT) 28 U/L (15-37); Alanine Aminotransfer ALT/SGPT 62 U/L (16-61); Alkaline Phosphatase 71 U/L (45-117); Anion Gap 3 (5-15); BUN 15 mg/dL (7-18); BUN/Creat Ratio 13.9 RATIO (10-20); Calcium,Total 9.6 mg/dL (8.5-10.1); Chloride 105 mmol/L (98-107); Cholesterol 178 mg/dL (200); Creatinine, Serum 1.08 mg/dL (0.70-1.30); EST Glomerular Filtration Rate 75 mL/min (>60); Est Glom Filt Rate - Afr Amer 91 mL/min (>60); Globulin 3.1 g/dL (2.2-4.2); Glucose 90 mg/dL (74-106); High Density Lipoprotein 57 mg/dL; Potassium 4.2 mmol/L (3.5-5.1); Protein, Total 7.1 g/dL (6.4-8.2); Sodium Level 138 mmol/L (136-145); Triglycerides 93 mg/dL; Very Low Density Lipoprotein 19 mg/dL (5-40)
[2024-08-23 11:47] LABS: Hemoglobin A1c 5.7 % (3.8-5.6)
== END | disposition home or self-care (01) ==
LOC: MTLAB 07:34
PROVIDERS: PCP Family Medicine; Referring Provider Family Medicine; Visit Provider Family Medicine
DX: R73.02 Impaired glucose tolerance (oral) (principal); E78.00 Pure hypercholesterolemia, unspecified
CPT/HCPCS: 36415; 80053; 80061; 83036; 85025

== ENCOUNTER → 2025-01-17 | Outpatient (CLI) | payer OTHER, SELFPAY ==
[2025-01-17 09:53] LABS: SERUM TEARS COLLECTION SPECIMEN PROCESSED
== END | disposition home or self-care (01) ==
PROVIDERS: PCP Family Medicine; Referring Provider Ophthalmology; Visit Provider Ophthalmology
DX: H16.12 Filamentary keratitis (principal); H16.141 Punctate keratitis, right eye

== ENCOUNTER → 2025-03-07 | Outpatient (CLI) | payer OTHER, SELFPAY ==
[2025-03-07 10:48] LABS: Absolute Lymphocyte Count 1.53 X10^3/uL (0.83-4.51); Absolute Neutrophil Count 2.5 X10^3/uL (2.0-7.7); Basophil# 0.03 X10^3/uL; Basophil% 0.6 % (0-1); Eosinophil# 0.09 X10^3/uL; Eosinophils% 1.8 % (0-5); Hematocrit 43.3 % (40-54); Hemoglobin 14.3 g/dL (13.0-16.5); Lymphocyte # 1.53 X10^3/ul (0.83-4.51); Lymphocyte % 31.4 % (19-41); Mean Corpuscular Hgb 29.7 pg (27.0-32.0); Mean Platelet Vol. 10.4 fl (6.2-12.0); Monocyte# 0.74 X10^3/uL; Monocyte% 15.2 % (0-10); NRBC Flagged by Analyzer 0 % (0-5); Neutrophil # 2.46 X10^3/uL (2.7-7.7); Neutrophil % 50.6 % (47-70); Platelet Count 222 K/mm3 (150-450); RBC Distribution Width CV 14.2 % (11.6-14.6); RBC Distribution Width SD 47.1 fl (35.1-43.9); Red Blood Count 4.81 M/mm3 (4.6-6.2); White Blood Count 4.9 K/mm3 (4.4-11.0)
[2025-03-07 11:02] LABS: Hemoglobin A1c 5.7 % (<=5.6)
[2025-03-07 11:11] LABS: ALB/GLOB Ratio 1.7 RATIO (0.9-2.4); AST(SGOT) 39 U/L (<=37); Alanine Aminotransfer ALT/SGPT 66 U/L (<=46); Albumin, Serum 4.4 g/dL (3.5-5.0); Alkaline Phosphatase 74 U/L (40-129); Anion Gap 10 (5-15); BUN 16 mg/dL (4-19); BUN/Creat Ratio 14.7 RATIO (10-20); Calcium,Total 9.5 mg/dL (7.6-11.0); Chloride 104 mmol/L (98-108); Cholesterol 171 mg/dL (<=200); Creatinine, Serum 1.07 mg/dL (0.70-1.20); EST Glomerular Filtration Rate 81 (>60); Globulin 2.5 g/dL (2.2-4.2); Glucose 102 mg/dL (70-99); High Density Lipoprotein 50 mg/dL; Low Density Lipoprotein Calc. 100 mg/dL; PSA,Total - Annual Screen 0.31 ng/mL (0.02-4.00); Potassium 4.2 mmol/L (3.3-5.1); Protein, Total 6.9 g/dL (5.9-8.4); Sodium Level 141 mmol/L (133-145); Triglycerides 102 mg/dL; Very Low Density Lipoprotein 20 mg/dL (5-40)
== END | disposition home or self-care (01) ==
LOC: MTLAB 07:40
PROVIDERS: PCP Family Medicine; Referring Provider Family Medicine; Visit Provider Family Medicine
DX: Z12.5 Encounter for screening for malignant neoplasm of prostate (principal); R73.02 Impaired glucose tolerance (oral); E78.00 Pure hypercholesterolemia, unspecified
CPT/HCPCS: 36415; 80053; 80061; 83036; 84153; 85025; G0103

== ENCOUNTER → 2025-03-17 | Outpatient (CLI) | payer OTHER, SELFPAY ==
--- NOTE | 2025-03-17 07:26 | US_ITS ---
PROCEDURE: ABDOMEN LIMITED 03/17/2025 REASON FOR EXAM: ELEVATED LFTS COMPARISON: None FINDINGS: Liver: Diffusely echogenic suggesting fatty infiltration. Liver measures 17.9 cm. Upper limits of normal. There is a 1.3 cm x 1.6 cm x 1.8 cm cyst in the right lobe of the liver. Gallbladder: No stones, sludge, wall thickening or tenderness. Common bile duct: Normal measuring 4.0 mm . Pancreas: Visualized portions are sonographically unremarkable. Other: Visualized portions of the right kidney are unremarkable. No right upper quadrant ascites. US/Abdomen Limited IMPRESSION: Borderline hepatomegaly and diffuse fatty infiltration of the liver. There is a 1.3 cm x 1.6 cm 1.8 cm cyst in the right lobe of the liver. Reading Location: [id number]
== END | disposition home or self-care (01) ==
LOC: US 07:25
PROVIDERS: PCP Family Medicine; Referring Provider Family Medicine; Visit Provider Family Medicine
DX: R79.89 Other specified abnormal findings of blood chemistry (principal)
CPT/HCPCS: 76705

== ENCOUNTER → 2025-09-09 | Outpatient (CLI) | payer OTHER, SELFPAY ==
[2025-09-09 09:50] LABS: Hematocrit 44.1 % (40-54); Hemoglobin 14.6 g/dL (13.0-16.5); Immature Granulocytes Count 0.010 X10^3/uL (0.0-0.0); Mean Corp Hgb Conc 33.1 g/dL (32-36); Mean Corpuscular Volume 88.9 fL (80-94); Mean Platelet Vol. 10.3 fl (6.2-12.0); NRBC Flagged by Analyzer 0 % (0-5); Platelet Count 204 K/mm3 (150-450); RBC Distribution Width CV 14.2 % (11.6-14.6); RBC Distribution Width SD 45.6 fl (35.1-43.9); Red Blood Count 4.96 M/mm3 (4.6-6.2); White Blood Count 4.5 K/mm3 (4.4-11.0)
[2025-09-09 10:37] LABS: AST(SGOT) 32 U/L (<=37); Alanine Aminotransfer ALT/SGPT 62 U/L (<=46); Albumin, Serum 4.3 g/dL (3.5-5.0); Alkaline Phosphatase 66 U/L (40-129); Anion Gap 10 (5-15); BUN 15 mg/dL (4-19); BUN/Creat Ratio 15.4 RATIO (10-20); Calcium,Total 9.4 mg/dL (7.6-11.0); Carbon Dioxide 25.5 mmol/L (21.0-32.0); Chloride 105 mmol/L (98-108); Cholesterol 196 mg/dL (<=200); Globulin 2.5 g/dL (2.2-4.2); Glucose 95 mg/dL (70-99); Low Density Lipoprotein Calc. 127 mg/dL; Potassium 4.2 mmol/L (3.3-5.1); Triglycerides 112 mg/dL; Very Low Density Lipoprotein 22 mg/dL (5-40); cholesterol:hdl ratio screen 3.98
== END | disposition home or self-care (01) ==
LOC: MTLAB 07:15
PROVIDERS: PCP Family Medicine; Referring Provider Family Medicine; Visit Provider Family Medicine
DX: R73.02 Impaired glucose tolerance (oral) (principal); E78.00 Pure hypercholesterolemia, unspecified
CPT/HCPCS: 36415; 80053; 80061; 83036; 85025

== ENCOUNTER → 2025-10-03 | Outpatient (CLI) | payer SELFPAY ==
--- OUTSIDE RECORDS SUMMARY | 2025-10-03 09:53 | XMS RPT_ITS | CCD ---
Author Organization [facility] Inform ion Partnership [facility] Care Team Providers Care Wound Care Rn Name Role Phone Dr. Darwin Liu Primary Care Provider Dr. Darwin Liu Referring Provider Vaishnavi DUNCAN, DAKOTA Ugalde Attending Provider Faizan Flores Unavailable Darwin Liu MD Primary Care Provider Faizan Flores MD Unavailable Dr. Darwin Liu MD Primary Care Provider [phone] Dr. Faizan Flores MD Attending Provider Dr. Faizan Flores MD Referring Provider Dr. Darwin iLu MD Attending Provider Dr. Darwin Liu MD Referring Provider Darwin Liu Attending Unavailable Darwin Liu Referring Unavailable Darwin Liu Primary Care Unavailable Darwin Liu Referring Unavailable Darwin Liu Primary Care Unavailable Darwin Liu Attending Unavailable Darwin Liu Attending Unavailable Darwin Liu Referring Unavailable Darwin Liu Primary Care Unavailable Faizan Flores Attending Unavailable Faizan Flores Referring Unavailable Darwin Liu Primary Care Unavailable MABEL STOCKTON Attending Unavailable SELF Referring Unavailable DARWIN LIU Primary Care Unavailable MABEL STOCKTON Attending Unavailable SELF Referring Unavailable DARWIN LIU Primary Care Unavailable MABEL STOCKTON Attending Unavailable SELF Referring Unavailable DARWIN LIU Primary Care Unavailable MABEL STOCKTON Attending Unavailable SELF Referring Unavailable DARWIN LIU Primary Care Unavailable Allergies Allergy Classification Reported Allergen(s) Allergy Type Date of Onset Reaction(s) Facility (20 sources) Clarithromycin; Translations: [CLARITHROMYCIN] Drug Allergy 9 Rash, Hives, Itching [facility] (11 sources) Seasonal allergy; Translations: [SEASONAL ALLERGIES] Allergy to substance 2 Other: See Comments [facility] (1 source) Clarithromycin Drug Allergy 3 [facility] Repository Medications Current Medications Medication Drug Class(es) Dates Sig (Normalized) Sig (Original) ascorbic acid 500 mg oral tablet (10 sources) Vitamin C take 1 tablet by mouth once daily ascorbic acid (VITAMIN C) 500 mg tablet Take 500 mg by mouth once daily. Active Comment on above: Take 500 mg by mouth once daily. autologous serum 100% ophth drops (10 sources) Start: 04-06-2023 autologous serum 100% ophth drops 04/06/2023 Active Start: 04-06-2023 autologous ser um 100% ophth drops benoxinate hydrochloride 4 mg/ml / fluorescein sodium 3 mg/ml ophthalmic solution (1 source) Diagnostic Dye Start: 05-21-2025 End: 05-22-2025 fluorescein-benoxinate 0.3-0.4 % 1 drop (FLURESS) benzonatate 200 mg oral capsule (8 sources) Non-narcotic Antitussive Start: 01-09-2023 take 1 capsule by mouth three times daily as needed for cough Benzonatate 200 mg capsule Active 200 mg PO THREE TIMES A DAY as needed for cough January 09, 2023 1:00am CARBOXYMETHYLCELLU LOS/GLYCERIN (REFRESH OPTIVE OPHTHALMIC) (10 sources) CARBOXYMETHYLCEL LULOS/GLYC NICO (REFRESH OPTIVE OPHTHALMIC) Use in eyes. sporadic use - some days not at all, some days up to 8-10 on a bad day Active CARBOXYMETHYLCEL LULOS/GLYCERIN (REFRESH OPTIVE OPHTHALMIC) Use in eyes. sporadic use - some days not at all, some days up to 8-10 on a bad day 0 Active Comment on above: Use in eyes. sporadi c use - some days not at all, some days up to 8-10 on a bad day carboxymethylcellulose 0.01 mg/mg ophthalmic gel (5 sources) Start: 2022 apply 1 drop(s) into the eye(s) twice daily Carboxymethylcellulose Sodium (Lubricant Dry Eye Relief) 1 % drops, liquid gel Active 1 NMA OPHTHALMIC TWICE A DAY January 09, 2023 1:00am Start: 01-09-2023 apply 1 drop(s) into the eye(s) twice daily Carboxymethylcellulose Sodium (Lubricant Dry Eye Relief) 1 % drops, liquid gel Active 1 DRP OPHTHALMIC TWICE A DAY January 09, 2023 1:00am Carboxymethylcellulose Sodium (Lubricant Dry Eye Relief) 1 % drops, liquid gel (3 sources) Start: 01-09-2023 apply 1 drop(s) into the eye(s) twice daily Carboxymethylcellulose Sodium (Lubricant Dry Eye Relief) 1 % drops, liquid gel Active 1 DRP OPHTHALMIC TWICE A DAY January 09, 2023 1:00am chondroitin sulf A sodium, PF, (KLARITY, CHONDROITIN,, PF,) 0.25 % drop (10 sources) take 1 drop(s) into the eye(s) twice daily chondroitin sulf A sodium, PF, (KLARITY, CHONDROITIN,, PF,) 0.25 % drop Use 1 Drop in eyes two times a day. Active take 1 drop(s) into the eye(s) twice daily chondroitin sulf A sodium, PF, (KLARITY, CHONDROITIN,, PF,) 0.25 % drop Use 1 Drop in eyes two times a day. 0 Active Comment on above: Use 1 Drop in eyes t wo times a day. cycloSPORINE 0.5 mg/ml ophthalmic suspension (20 sources) Calcineurin Inhibitor Immunosuppressant Start : 03-28 take 1 drop(s) into the eye(s) twice daily cycloSPORINE (RESTASIS) 0.05 % ophthalmic emulsion Use 1 Drop in both eyes twice daily. 2 Packet 6 01/10/2013 Active Comment on above: Use 1 Drop in both e yes twice daily. dexamethasone 0.001 mg/mg / neomycin 0.0035 mg/mg / polymyxin b 10 unt/mg ophthalmic ointment (10 sources) Aminoglycoside Antibacterial, Polymyxin-class Antibacterial, Corticosteroid Start : 02-07 neomycin/polymyxin b/dexametha(MAXITROL 3.5 MG/G-10,000 UNIT/G-0.1 % EYE OINTMENT) Use 1 application in both eyes daily at bedtime. 3.5 g 2 02/08/2024 Active Comment on above: Use 1 application in both eyes daily at bedtime. dorzolamide 20 mg/ml / timolol 5 mg/ml ophthalmic solution (10 sources) Carbonic Anhydrase Inhibitor, beta-Adrenergic Vivienne Start : 02-07 take 1 drop(s) into the eye(s) twice daily dorzolamide-timolol (COSOPT) 22.3-6.8 mg/mL ophthalmic solution Use 1 Drop in both eyes two times a day. 10 mL 5 02/08/2024 Active Comment on above: Use 1 Drop in both e yes two times a day. doxycycline monohydrate 50 mg oral tablet (12 sources) Tetracycline-class Drug Start : 02-07 End: 04-09 take 1 tablet by mouth twice daily doxycycline monohydrate 50 mg tablet take 1 tablet by mouth twice a day 60 tablet 5 04/09/2025 Active Comment on above: Take 1 tablet by maggie th two times a day. erythromycin 0.005 mg/mg ophthalmic ointment (10 sources) Macrolide, Macrolide Antimicrobial erythromycin (ROMYCI N) 5 mg/gram (0.5 %) ophthalmic ointment INSTILL INTO RIGHT EYE DAILY AT BEDTIME Active Comment on above: INSTILL INTO RIGHT E YE DAILY AT BEDTIME loratadine 10 mg oral tablet (10 sources) Start : 07-16 LORATADINE 10 MG TAB Indications: Seasonal allergies Take one(1) tablet daily as needed. 0 07/16/2009 Active Comment on above: Take one(1) tablet d aily as needed. methylPREDNISolone 4 mg oral tablet (8 sources) Corticosteroid Start : 01-09 take 1 tablet by mouth once Methylprednisolone (Medrol (Arnulfo)) 4 mg tablets,dose pack Active 0 PO per package directions January 09, 2023 1:00am PO PER PKG DIR Multivitamin (Multiple Vitamins) 1 EACH tablet (11 sources) Start : 08-15 take 1 tablet by mouth once daily Multivitamin (Multiple Vitamins) 1 EACH tablet Active 1 NMA PO DAILY August 15, 2018 12:00am Start: 08-15-2018 take 1 tablet by maggie th once daily Multivitamin (Multiple Vitamins) 1 EACH tablet Active 1 EACH PO DAILY August 14, 2018 11:00pm Start: 08-15-2018 take 1 tablet by maggie th once daily Multivitamin (Multiple Vitamins) 1 EACH tablet Active 1 EACH PO DAILY August 15, 2018 12:00am multivitamins(DAILY MULTIPLE TAB) (10 sources) Start: 07-16-2009 multivitamins( DAILY MULTIPLE TAB) Take one(1) tablet daily. 0 07/16/2009 Active Comment on above: Take one(1) tablet d aily. [place]-3 Fatty Acids-Fish Oil (Fish Oil 1,000 Mg Capsule) 1 EACH capsule (11 sources) Start: 08-15-2018 [place]-3 Fatty Acids-Fish Oil (Fish Oil 1,000 Mg Capsule) 1 EACH capsule Active 1 NMA PO DAILY August 15, 2018 12:00am Start: 08-15-2018 [place]-3 Fatty Acids-Fish Oil (Fish Oil 1,000 Mg Capsule) 1 EACH capsule Active 1 EACH PO DAILY August 14, 2018 11:00pm Start: 08-15-2018 [place]-3 Fatty Acids-Fish Oil (Fish Oil 1,000 Mg Capsule) 1 EACH capsule Active 1 EACH PO DAILY August 15, 2018 12:00am pravastatin sodium 10 mg oral tablet (20 sources) HMG-CoA Reductase Inhibitor Start: 11-13-2012 take 1 tablet by mouth once daily at bedtime pravastatin (PRAVACHOL) 10 mg tablet Indications: Hypercholesterolemia , Fam hx-ischem heart disease Take 1 tablet by mouth daily at bedtime. 90 tablet 3 11/13/2012 Active Comment on above: Take 1 tablet by maggie th daily at bedtime. PROPYLENE GLYCOL/PEG 400/PF (SYSTANE, PF, OPHTHALMIC) (10 sources) PROPYLENE GLYCOL /PEG 400/PF (SYSTANE, PF, OPHTHALMIC) Use in eyes. Active PROPYLENE GLYCOL /PEG 400/PF (SYSTANE, PF, OPHTHALMIC) Use in eyes. 0 Active Comment on above: Use in eyes. tropicamide 10 mg/ml ophthalmic solution (1 source) Anticholinergic Start: 05-21-2025 End: 05-22-2025 tropicamide 1 % 1 drop (MYDRIACYL) VITAMIN E/FLAXSEED OIL (OMEGA-3 FLAXSEED OIL ORAL) (10 sources) VITAMIN E/FLAXSE ED OIL (OMEGA-3 FLAXSEED OIL ORAL) Take by mouth. Active VITAMIN E/FLAXSE ED OIL (OMEGA-3 FLAXSEED OIL ORAL) Take by mouth. 0 Active Comment on above: Take by mouth. Completed/Discontinued Medications Medication Drug Class(es) Dates Sig (Normalized) Sig (Original) minocycline 100 mg oral capsule (1 source) Tetracycline-cla ss Drug Start: 01-10-2013 End: 02-08-2024 take 1 capsule by mouth twice daily minocycline 100 mg capsule Take 1 capsule by mouth twice daily. 60 capsule 6 01/10/2013 02/08/2024 Discontinued Comment on above: Take 1 capsule by [facility] twice daily. predniSONE 10 mg oral tablet (11 sources) Start: 09-02-2021 End: 01-09-2023 take 4 tablets by mouth once daily, then take 3 tablets by mouth once daily, then take 2 tablets by mouth once daily, then take 1 tablet by mouth once daily Prednisone 10 mg tablet Discontinued 0 PO DAILY September 02, 2021 12:00am January 09, 2023 4:20pm 40 mg PO daily x 3 days, 30 mg PO daily x 3 days, 20 mg PO daily x 3 days, 10 mg PO daily x 3 days Start: 09-02-2021 End: 01-09-2023 take 40 mg by mouth once daily, then take 30 mg by mouth once daily, then take 20 mg by mouth once daily, then take 10 mg by mouth once daily Prednisone Discontinued 0 PO DAILY September 02, 2021 12:00am January 09, 2023 4:20pm 40 mg PO daily x 3 days, 30 mg PO daily x 3 days, 20 mg PO daily x 3 days, 10 mg PO daily x 3 days Problems Active Problems Problem Classification Problem Date Documented Da te Episodic/Chronic Acute bronchitis (9 sources) Acute bronchitis; Translations: [Acute bronchitis, unspecified] 01-09-2023 Episodic Allergic reactions (11 sources) Contact dermatitis due to poison smooth; Translations: [Allergic contact dermatitis due to plants, except food] 09-02-2021 Episodic Blindness and vision defects (8 sources) Does use contact lenses; Translations: [Presence of spectacles and contact lenses] Onset: 09-11-2025 02-21-2024 Episodic Disorders of lipid metabolism (10 sources) Hypercholesterolemi a; Translations: [Pure hypercholesterolemi a, unspecified] Onset: 07-16-2009 08-31-2012 Chronic Inflammation; infection of eye (except that caused by tuberculosis or sexually transmitteddisease) (2 sources) Chronic allergic conjunctivitis; Translations: [Other chronic allergic conjunctivitis] Onset: 01-28-2025 02-08-2024 Chronic Other eye disorders (6 sources) Disorder of lacrimal gland; Translations: [Dry eye syndrome of bilateral lacrimal glands] 02-08-2024 Episodic Other eye disorders (10 sources) Dry eyes; Translations: [Dry eye syndrome of bilateral lacrimal glands] 08-31-2012 Episodic Other eye disorders (13 sources) Malposition of eyelashes; Translations: [Trichiasis without entropion unspecified eye, unspecified eyelid] 08-31-2012 Episodic Other inflammatory condition of skin (10 sources) Rosacea, unspecified; Translations: [Rosacea conjunctivitis] 11-01-2021 Chronic Other inflammatory condition of skin (14 sources) Ocular rosacea; Translations: [Other rosacea] Onset: 02-21-2024 02-21-2024 Chronic Other inflammatory condition of skin (1 source) Other rosacea; Translations: [Ocular rosacea] Onset: 02-21-2024 Chronic Other upper respiratory disease (10 sources) Seasonal allergy; Translations: [Other seasonal allergic rhinitis] Onset: 07-16-2009 09-18-2011 Chronic Other upper respiratory infections (9 sources) Upper respiratory infection; Translations: [Acute upper respiratory infection, unspecified] 01-09-2023 Episodic Unclassified (1 source) Follow Up For Onset: 07-22-2025 Past or Other Problems Problem Classification Problem Date Documented Da te Episodic/Chronic Other eye disorders (12 sources) Meibomian gland dysfunction of bilateral eyes; Translations: [Meibomian gland dysfunction right eye, upper and lower eyelids] Onset: 02-21-2024 02-08-2024 Episodic Other eye disorders (12 sources) Ptosis of eyelid; Translations: [Unspecified ptosis of bilateral eyelids] Onset: 02-21-2024 02-08-2024 Episodic Other eye disorders (1 source) Dry eye syndrome of bilateral lacrimal glands; Translations: [Dry eye syndrome of bilateral lacrimal glands] Onset: 05-21-2025 Episodic Other eye disorders (1 source) 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; Translations: [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] Onset: 05-21-2025 Episodic Other eye disorders (1 source) Unspecified ptosis of bilateral eyelids; Translations: [Ptosis of both eyelids] Onset: 02-21-2024 Episodic Other nutritional; endocrine; and metabolic disorders (10 sources) Overweight; Translations: [Overweight] Onset: 07-16-2009 09-18-2011 Episodic Other screening for suspected conditions (not mental disorders or infectious disease) (2 sources) Other specified abnormal findings of blood chemistry; Translations: [Encounter for screening for malignant neoplasm of prostate] Onset: 03-13-2025 Episodic Residual codes; unclassified (10 sources) Family history of ischemic heart disease; Translations: [Family history of ischemic heart disease and other diseases of the circulatory system] Onset: 07-16-2009 09-18-2011 Episodic Residual codes; unclassified (10 sources) Family history of diabetes mellitus; Translations: [Family history of diabetes mellitus] Onset: 07-16-2009 09-18-2011 Episodic Results Test Name Value Interpretation Reference Range Facility CBC W/Diff, Automatedon 11-0 Absolute Lymph 1.58 X10 3/uL Normal 0.83-4.51 [facility] Comment on above: Order Comment: Order Date: 03/12/25 Order Info: [id number] - CBCD Performed By: #### L 500.4100, L500.4050, L501.9985, L100.0100 #### [facility] [address] [place], [address] Absolute Neut 2.2 X10 3/uL Normal 2.0-7.7 [facility] Comment on above: Order Comment: Order Date: 03/12/25 Order Info: [id number] - CBCD Performed By: #### L 500.4100, L500.4050, [id number], L100.0100 #### [facility] [address] [place], [address] Basophils/100 WBC (Bld) 0.4 % Normal 0-1 [facility] Comment on above: Order Comment: Order Date: 03/12/25 Order Info: [id number] - CBCD Performed By: #### L 500.4100, L500.4050, [id number], L100.0100 #### [facility] [address] [place], [address] Eosinophils/100 WBC (Bld) 1.5 % Normal 0-5 [facility] Comment on above: Order Comment: Order Date: 03/12/25 Order Info: [id number] - CBCD Performed By: #### L 500.4100, L500.4050, [id number], L100.0100 #### [facility] [address] [place], [address] Erythrocyte distribution width (RBC) [Ratio] 14.2 % Normal 11.6-14.6 [facility] Comment on above: Order Comment: Order Date: 03/12/25 Order Info: [id number] - CBCD Performed By: #### L 500.4100, L500.4050, [id number], L100.0100 #### [facility] [address] [place], [address] Hematocrit (Bld) [Volume fraction] 44.1 % Normal 40-54 [facility] Comment on above: Order Comment: Order Date: 03/12/25 Order Info: [id number] - CBCD Performed By: #### L 500.4100, L500.4050, L501.9985, L100.0100 #### [facility] [address] [place], [address] Hemoglobin (Bld) [Mass/Vol] 14.6 g/dL Normal 13.0-16.5 [facility] Comment on above: Order Comment: Order Date: 03/12/25 Order Info: [id number] - CBCD Performed By: #### L 500.4100, L500.4050, [id number], L100.0100 #### [facility] [address] [place], [address] IG% 0.200 Normal 0.0-0.9 [facility] Comment on above: Order Comment: Order Date: 03/12/25 Order Info: [id number] - CBCD Result Comment: IG% - Immature Granulocytes (promyelocytes, myelocytes and metamyelocytes) > 1% indicates that a LEFT SHIFT is Present. Performed By: #### L 500.4100, L500.4050, L501.9985, L100.0100 #### [facility] [address] [place], [address] Lymphocytes/100 WBC (Bld) 35.0 % Normal 19-41 [facility] Comment on above: Order Comment: Order Date: 03/12/25 Order Info: [id number] - CBCD Performed By: #### L 500.4100, L500.4050, [id number], L100.0100 #### [facility] [address] [place], [address] MCH (RBC) [Entitic mass] 29.4 pg Normal 27.0-32.0 [facility] Comment on above: Order Comment: Order Date: 03/12/25 Order Info: [id number] - CBCD Performed By: #### L 500.4100, L500.4050, [id number], L100.0100 #### [facility] [address] [place], [address] MCHC (RBC) [Mass/Vol] 33.1 g/dL Normal 32-36 [facility] Comment on above: Order Comment: Order Date: 03/12/25 Order Info: [id number] - CBCD Performed By: #### L 500.4100, L500.4050, [id number], L100.0100 #### [facility] [address] [place], [address] MCV (RBC) [Entitic vol] 88.9 fL Normal 80-94 [facility] Comment on above: Order Comment: Order Date: 03/12/25 Order Info: [id number] - CBCD Performed By: #### L 500.4100, L500.4050, [id number], L100.0100 #### [facility] [address] [place], [address] Monocytes/100 WBC (Bld) 14.2 % High 0-10 [facility] Comment on above: Order Comment: Order Date: 03/12/25 Order Info: [id number] - CBCD Performed By: #### L 500.4100, L500.4050, [id number], L100.0100 #### [facility] [address] [place], [address] Neutrophils/100 WBC (Bld) 48.7 % Normal 47-70 [facility] Comment on above: Order Comment: Order Date: 03/12/25 Order Info: [id number] - CBCD Performed By: #### L 500.4100, L500.4050, L501.9985, L100.0100 #### [facility] [address] [place], [address] Nucleated RBC (Bld) [#/Vol] 0 10*3/uL Normal 0-5 [facility] Comment on above: Order Comment: Order Date: 03/12/25 Order Info: [id number] - CBCD Performed By: #### L 500.4100, L500.4050, [id number], L100.0100 #### [facility] [address] [place], [address] Platelet mean volume (Bld) [Entitic vol] 10.3 fL Normal 6.2-12.0 [facility] Comment on above: Order Comment: Order Date: 03/12/25 Order Info: [id number] - CBCD Performed By: #### L 500.4100, L500.4050, L501.9985, L100.0100 #### [facility] [address] [place], [address] Platelets (Bld) [#/Vol] 204 10*3/uL Normal 150-450 [facility] Comment on above: Order Comment: Order Date: 03/12/25 Order Info: [id number] - CBCD Performed By: #### L 500.4100, L500.4050, L501.9985, L100.0100 #### [facility] [address] [place], [address] RBC (Bld) [#/Vol] 4.96 10*6/uL Normal 4.6-6.2 [facility] Comment on above: Order Comment: Order Date: 03/12/25 Order Info: [id number] - CBCD Performed By: #### L 500.4100, L500.4050, L501.9985, L100.0100 #### [facility] [address] [place], [address] RDW SD 45.6 fl High 35.1-43.9 [facility] Comment on above: Order Comment: Order Date: 03/12/25 Order Info: [id number] - CBCD Performed By: #### L 500.4100, L500.4050, [id number], L100.0100 #### [facility] [address] [place], [address] WBC (Bld) [#/Vol] 4.5 10*3/uL Normal 4.4-11.0 [facility] Comment on above: Order Comment: Order Date: 03/12/25 Order Info: [id number] - CBCD Performed By: #### L 500.4100, L500.4050, [id number], L100.0100 #### [facility] [address] [place], [address] Comprehensive Metabolic Prof ilon 09-09-2025 Albumin [Mass/Vol] 4.3 g/dL Normal 3.5-5.0 [facility] Comment on above: Order Comment: Order Date: 03/12/25 Order Info: [id number] - CMP Order Info: [id number] - LIPID Performed By: #### L 500.4100, L500.4050, [id number], L100.0100 #### [facility] [address] [place], [address] Albumin/Globulin [Mass ratio] 1.8 {ratio} Normal 0.9-2.4 [facility] Comment on above: Order Comment: Order Date: 03/12/25 Order Info: [id number] - CMP Order Info: [id number] - LIPID Performed By: #### L 500.4100, L500.4050, [id number], L100.0100 #### [facility] [address] [place], [address] ALK PHOS 66 U/L Normal 40-129 [facility] Comment on above: Order Comment: Order Date: 03/12/25 Order Info: [id number] - CMP Order Info: [id number] - LIPID Performed By: #### L 500.4100, L500.4050, [id number], L100.0100 #### [facility] [address] [place], [address] ALT [Catalytic activity/Vol] 62 U/L High <=46 [facility] Comment on above: Order Comment: Order Date: 03/12/25 Order Info: [id number]- - CMP Order Info: [id number] - LIPID Performed By: #### L 500.4100, L500.4050, L501.9985, L100.0100 #### [facility] [address] [place], [address] AST [Catalytic activity/Vol] 32 U/L Normal <=37 [facility] Comment on above: Order Comment: Order Date: 03/12/25 Order Info: [id number] - CMP Order Info: [id number] - LIPID Performed By: #### L 500.4100, L500.4050, L501.9985, L100.0100 #### [facility] [address] [place], [address] Bilirubin [Mass/Vol] 0.37 mg/dL Normal 0.00-1.30 [facility] Comment on above: Order Comment: Order Date: 03/12/25 Order Info: [id number] - CMP Order Info: [id number] - LIPID Performed By: #### L 500.4100, L500.4050, L501.9985, L100.0100 #### [facility] [address] [place], [address] BUN/CRE 15.4 RATIO Normal 10-20 [facility] Comment on above: Order Comment: Order Date: 03/12/25 Order Info: [id number] - CMP Order Info: [id number] - LIPID Performed By: #### L 500.4100, L500.4050, [id number], L100.0100 #### [facility] [address] [place], [address] Calcium [Mass/Vol] 9.4 mg/dL Normal 7.6-11.0 [facility] Comment on above: Order Comment: Order Date: 03/12/25 Order Info: [id number] - CMP Order Info: [id number] - LIPID Performed By: #### L 500.4100, L500.4050, L501.9985, L100.0100 #### [facility] [address] [place], [address] Chloride [Moles/Vol] 105 mmol/L Normal 98-108 [facility] Comment on above: Order Comment: Order Date: 03/12/25 Order Info: [id number] - CMP Order Info: [id number] - LIPID Performed By: #### L 500.4100, L500.4050, L501.9985, L100.0100 #### [facility] [address] [place], [address] CO2 [Moles/Vol] 25.5 mmol/L Normal 21.0-32.0 [facility] Comment on above: Order Comment: Order Date: 03/12/25 Order Info: [id number] - CMP Order Info: [id number] - LIPID Performed By: #### L 500.4100, L500.4050, L501.9985, L100.0100 #### [facility] [address] [place], [address] Creatinine [Mass/Vol] 0.97 mg/dL Normal 0.70-1.20 [facility] Comment on above: Order Comment: Order Date: 03/12/25 Order Info: [id number]- - CMP Order Info: [id number] - LIPID Performed By: #### L 500.4100, L500.4050, L501.9985, L100.0100 #### [facility] [address] [place], [address] GAP 10 Normal 5-15 [facility] Comment on above: Order Comment: Order Date: 03/12/25 Order Info: [id number]- - CMP Order Info: [id number] - LIPID Performed By: #### L 500.4100, L500.4050, L501.9985, L100.0100 #### [facility] [address] [place], [address] GFR/1.73 sq M.predicted among non-blacks MDRD (S/P/Bld) [Vol rate/Area] 91 mL/min/{1.73_m2} Normal >60 [facility] Comment on above: Order Comment: Order Date: 03/12/25 Order Info: 0786- - CMP Order Info: [id number] - LIPID Result Comment: mL/m in/1.73m2 CKD-EPI Creatinine Equation (2020) Performed By: #### L 500.4100, L500.4050, L501.9985, L100.0100 #### [facility] [address] [place], [address] Globulin (S) [Mass/Vol] 2.5 g/dL Normal 2.2-4.2 [facility] Comment on above: Order Comment: Order Date: 03/12/25 Order Info: 0786-1 - CMP Order Info: [id number] - LIPID Performed By: #### L 500.4100, L500.4050, L501.9985, L100.0100 #### [facility] [address] [place], [address] Glucose [Mass/Vol] 95 mg/dL Normal 70-99 [facility] Comment on above: Order Comment: Order Date: 03/12/25 Order Info: 0786-1 - CMP Order Info: [id number] - LIPID Performed By: #### L 500.4100, L500.4050, L501.9985, L100.0100 #### [facility] [address] [place], [address] Potassium [Moles/Vol] 4.2 mmol/L Normal 3.3-5.1 [facility] Comment on above: Order Comment: Order Date: 03/12/25 Order Info: 0786-1 - CMP Order Info: [id number] - LIPID Performed By: #### L 500.4100, L500.4050, L501.9985, L100.0100 #### [facility] [address] [place], [address] Sodium [Moles/Vol] 141 mmol/L Normal 133-145 [facility] Comment on above: Order Comment: Order Date: 03/12/25 Order Info: [id number] - CMP Order Info: [id number] - LIPID Performed By: #### L 500.4100, L500.4050, L501.9985, L100.0100 #### [facility] [address] [place], [address] T PROT 6.8 g/dL Normal 5.9-8.4 [facility] Comment on above: Order Comment: Order Date: 03/12/25 Order Info: [id number] - CMP Order Info: [id number] - LIPID Performed By: #### L 500.4100, L500.4050, L501.9985, L100.0100 #### [facility] [address] [place], [address] Urea nitrogen [Mass/Vol] 15 mg/dL Normal 4-19 [facility] Comment on above: Order Comment: Order Date: 03/12/25 Order Info: 0786-1 - CMP Order Info: [id number] - LIPID Performed By: #### L 500.4100, L500.4050, L501.9985, L100.0100 #### [facility] [address] [place], [address] Hemoglobin A1con 09-09-2025 HbA1c (Bld) [Mass fraction] 5.8 % High <=5.6 [facility] Comment on above: Order Comment: Order Date: 03/12/25 Order Info: [id number] - A1C Result Comment: Norm al < 5.7 % Prediabetic 5.7 - 6.4 % Diabetic >or= 6.5 % Please note range changes. Performed By: #### L 500.4100, L500.4050, L501.9985, L100.0100 #### [facility] [address] [place], [address] Lipid Profileon 09-09-2025 CHOL:HDL 3.98 Normal [facility] Comment on above: Order Comment: Order Date: 03/12/25 Order Info: 0786-1 - CMP Order Info: [id number] - LIPID Performed By: #### L 500.4100, L500.4050, L501.9985, L100.0100 #### [facility] [address] [place], [address] Cholesterol [Mass/Vol] 196 mg/dL Normal <=200 [facility] Comment on above: Order Comment: Order Date: 03/12/25 Order Info: 0786-1 - CMP Order Info: [id number] - LIPID Result Comment: Chol esterol level, Desirable <200 mg/dL Borderline high cholesterol 200-239 mg/dL High cholesterol >=240 mg/dL Recommendations of the NCEP Adult Treatment Panel for the following risk-cutoff thresholds for the [place] population. Performed By: #### L 500.4100, L500.4050, L501.9985, L100.0100 #### [facility] [address] [place], [address] Cholesterol in HDL [Mass/Vol] 49 mg/dL Normal [facility] Comment on above: Order Comment: Order Date: 03/12/25 Order Info: 0786- - CMP Order Info: [id number] - LIPID Result Comment: Linda onal Cholesterol Education Program (NCEP) guidelines: <40 mg/dL: Low HDL-cholesterol (major risk factor for CHD) >= 60 mg/dL: High HDL-cholesterol (negative risk factor for CHD) HDL-cholesterol is affected by a number of factors, e.g. smoking, exercise, hormones, sex and age. Performed By: #### L 500.4100, L500.4050, L501.9985, L100.0100 #### [facility] [address] [place], [address] Cholesterol in LDL [Mass/Vol] 127 mg/dL Normal [facility] Comment on above: Order Comment: Order Date: 03/12/25 Order Info: 0786-1 - CMP Order Info: [id number] - LIPID Result Comment: Bord awusnb=678-469 mg/dL Higher Ndmc=992 mg/dL or greater Willett Equation 2020 for LDL-C Performed By: #### L 500.4100, L500.4050, L501.9985, L100.0100 #### [facility] [address] [place], [address] Cholesterol in VLDL [Mass/Vol] 22 mg/dL Normal 5-40 [facility] Comment on above: Order Comment: Order Date: 03/12/25 Order Info: 0786-1 - CMP Order Info: [id number] - LIPID Performed By: #### L 500.4100, L500.4050, L501.9985, L100.0100 #### [facility] [address] [place], [address] Triglyceride [Mass/Vol] 112 mg/dL Normal [facility] Comment on above: Order Comment: Order Date: 03/12/25 Order Info: 0786-1 - CMP Order Info: [id number] - LIPID Result Comment: The drugs N-Acetylcysteine and Metamizole may falsely depress this assay. Normal range: <150 mg/dL Borderline High: 150-199 mg/dL High: 200-499 mg/dL Very High: >500 mg/dL Performed By: #### L 500.4100, L500.4050, L501.9985, L100.0100 #### [facility] [address] [place], [address] OCT ANTERIOR SEGMENT CIRRUS OU (BOTH EYES)on 06-24-2025 [facility] Radiology Study observation (narrative) [facility] OCT ANTERIOR SEGMENT CIRRUS OU (BOTH EYES)on 05-21-2025 [facility] Radiology Study observation (narrative) [facility] Abdomen Limitedon 03-17-2025 Abdomen Limited [facility] [address] [place] [address] Abdomen Limited MR#: [id number] Acct: [id number] Name: RICH WHITE Rep #: [id number] : 1965 M 59 From: Casey rizzo MD PCP: Dr. Darwin Liu MD Status: [facility] CL Study: Abdomen Limited Date of Exam: 03/17/25 Exam# [id number] Ordering Dr: Darwin Liu MD PROCEDURE: ABDOMEN LIMITED 03/17/2025 REASON FOR EXAM: ELEVATED LFTS COMPARISON: None FINDINGS: Liver: Diffusely echogenic suggesting fatty infiltration. Liver measures 17.9 cm. Upper limits of normal. There is a 1.3 cm x 1.6 cm x 1.8 cm cyst in the right lobe of the liver. Gallbladder: No stones, sludge, wall thickening or tenderness. Common bile duct: Normal measuring 4.0 mm . Pancreas: Visualized portions are sonographically unremarkable. Other: Visualized portions of the right kidney are unremarkable. No right upper quadrant ascites. US/Abdomen Limited IMPRESSION: Borderline hepatomegaly and diffuse fatty infiltration of the liver. There is a 1.3 cm x 1.6 cm 1.8 cm cyst in the right lobe of the liver. Reading Location: [facility] CC: Dr. Darwin Liu MD Fishing Vessel Deckhand: Signed Normal [facility] Absolute lymphocyte countOrd ered By: Darwin Liu on 03-07-2025 Lymphocytes Auto (Unsp spec) [#/Vol] 1.53 10*3/uL 0.83-4.51 [facility] Absolute neutrophil countOrd ered By: Darwin Liu on 03-07-2025 Neutrophils (Bld) [#/Vol] 2.5 10*3/uL 2.0-7.7 [facility] Anion gap in Serum or Plasma Ordered By: Darwin Liu on 03-07-2025 Anion gap [Moles/Vol] 10 mmol/L 5-15 [facility] Automated lymphocyte count a s percentage of total leukocytesOrdered By: Darwin Liu on 03-07-2025 Lymphocytes/100 WBC Auto (Unsp spec) 31.4 % 19-41 [facility] BUN/creatinine ratioOrdered By: Darwin Liu on 03-07-2025 Urea nitrogen/Creatinine [Mass ratio] 14.7 mg/mg 10-20 [facility] Basophil percentageOrdered B y: Darwin Liu on 03-07-2025 Basophils/100 WBC (Bld) 0.6 % 0-1 [facility] Bilirubin, totalOrdered By: Darwin Liu on 03-07-2025 Bilirubin [Mass/Vol] 0.40 mg/dL 0.00-1.30 [facility] CBC W/Diff, Automatedon 05-0 Absolute Lymph 1.53 X10 3/uL Normal 0.83-4.51 [facility] Comment on above: Order Comment: Order Date: 08/27/24 Order Info: [id number] - CBCD Performed By: #### L 500.4050, L100.0100, L501.9910, L501.9985, L500.4100 #### [facility] [address] [place], [address] Absolute Neut 2.5 X10 3/uL Normal 2.0-7.7 [facility] Comment on above: Order Comment: Order Date: 08/27/24 Order Info: 0184-1 - CBCD Performed By: #### L 500.4050, L100.0100, L501.9910, L501.9985, L500.4100 #### [facility] [address] [place], [address] Basophils/100 WBC (Bld) 0.6 % Normal 0-1 [facility] Comment on above: Order Comment: Order Date: 08/27/24 Order Info: 0184-1 - CBCD Performed By: #### L 500.4050, L100.0100, L501.9910, L501.9985, L500.4100 #### [facility] [address] [place], [address] Eosinophils/100 WBC (Bld) 1.8 % Normal 0-5 [facility] Comment on above: Order Comment: Order Date: 08/27/24 Order Info: 0184-1 - CBCD Performed By: #### L 500.4050, L100.0100, L501.9910, L501.9985, L500.4100 #### [facility] [address] [place], [address] Erythrocyte distribution width (RBC) [Ratio] 14.2 % Normal 11.6-14.6 [facility] Comment on above: Order Comment: Order Date: 08/27/24 Order Info: 0184-1 - CBCD Performed By: #### L 500.4050, L100.0100, L501.9910, L501.9985, L500.4100 #### [facility] [address] [place], [address] Hematocrit (Bld) [Volume fraction] 43.3 % Normal 40-54 [facility] Comment on above: Order Comment: Order Date: 08/27/24 Order Info: 0184-1 - CBCD Performed By: #### L 500.4050, L100.0100, L501.9910, L501.9985, L500.4100 #### [facility] [address] [place], [address] Hemoglobin (Bld) [Mass/Vol] 14.3 g/dL Normal 13.0-16.5 [facility] Comment on above: Order Comment: Order Date: 08/27/24 Order Info: 018- - CBCD Performed By: #### L 500.4050, L100.0100, L501.9910, L501.9985, L500.4100 #### [facility] [address] [place], [address] IG% 0.400 Normal 0.0-0.9 [facility] Comment on above: Order Comment: Order Date: 08/27/24 Order Info: 0184- - CBCD Result Comment: IG% - Immature Granulocytes (promyelocytes, myelocytes and metamyelocytes) > 1% indicates that a LEFT SHIFT is Present. Performed By: #### L 500.4050, L100.0100, L501.9910, L501.9985, L500.4100 #### [facility] [address] [place], [address] Lymphocytes/100 WBC (Bld) 31.4 % Normal 19-41 [facility] Comment on above: Order Comment: Order Date: 08/27/24 Order Info: 0184-1 - CBCD Performed By: #### L 500.4050, L100.0100, L501.9910, L501.9985, L500.4100 #### [facility] [address] [place], [address] MCH (RBC) [Entitic mass] 29.7 pg Normal 27.0-32.0 [facility] Comment on above: Order Comment: Order Date: 08/27/24 Order Info: 0184-1 - CBCD Performed By: #### L 500.4050, L100.0100, L501.9910, L501.9985, L500.4100 #### [facility] [address] [place], [address] MCHC (RBC) [Mass/Vol] 33.0 g/dL Normal 32-36 [facility] Comment on above: Order Comment: Order Date: 08/27/24 Order Info: 0184- - CBCD Performed By: #### L 500.4050, L100.0100, L501.9910, L501.9985, L500.4100 #### [facility] [address] [place], [address] MCV (RBC) [Entitic vol] 90.0 fL Normal 80-94 [facility] Comment on above: Order Comment: Order Date: 08/27/24 Order Info: 0184- - CBCD Performed By: #### L 500.4050, L100.0100, L501.9910, L501.9985, L500.4100 #### [facility] [address] [place], [address] Monocytes/100 WBC (Bld) 15.2 % High 0-10 [facility] Comment on above: Order Comment: Order Date: 08/27/24 Order Info: 0184- - CBCD Performed By: #### L 500.4050, L100.0100, L501.9910, L501.9985, L500.4100 #### [facility] [address] [place], [address] Neutrophils/100 WBC (Bld) 50.6 % Normal 47-70 [facility] Comment on above: Order Comment: Order Date: 08/27/24 Order Info: 0184-1 - CBCD Performed By: #### L 500.4050, L100.0100, L501.9910, L501.9985, L500.4100 #### [facility] [address] [place], [address] Nucleated RBC (Bld) [#/Vol] 0 10*3/uL Normal 0-5 [facility] Comment on above: Order Comment: Order Date: 08/27/24 Order Info: 0184-1 - CBCD Performed By: #### L 500.4050, L100.0100, L501.9910, L501.9985, L500.4100 #### [facility] [address] [place], [address] Platelet mean volume (Bld) [Entitic vol] 10.4 fL Normal 6.2-12.0 [facility] Comment on above: Order Comment: Order Date: 08/27/24 Order Info: 0184-1 - CBCD Performed By: #### L 500.4050, L100.0100, L501.9910, L501.9985, L500.4100 #### [facility] [address] [place], [address] Platelets (Bld) [#/Vol] 222 10*3/uL Normal 150-450 [facility] Comment on above: Order Comment: Order Date: 08/27/24 Order Info: 0184-1 - CBCD Performed By: #### L 500.4050, L100.0100, L501.9910, L501.9985, L500.4100 #### [facility] [address] [place], [address] RBC (Bld) [#/Vol] 4.81 10*6/uL Normal 4.6-6.2 [facility] Comment on above: Order Comment: Order Date: 08/27/24 Order Info: 0184-1 - CBCD Performed By: #### L 500.4050, L100.0100, L501.9910, L501.9985, L500.4100 #### [facility] [address] [place], [address] RDW SD 47.1 fl High 35.1-43.9 [facility] Comment on above: Order Comment: Order Date: 08/27/24 Order Info: 0184-1 - CBCD Performed By: #### L 500.4050, L100.0100, L501.9910, L501.9985, L500.4100 #### [facility] [address] [place], [address] WBC (Bld) [#/Vol] 4.9 10*3/uL Normal 4.4-11.0 [facility] Comment on above: Order Comment: Order Date: 08/27/24 Order Info: 0184-1 - CBCD Performed By: #### L 500.4050, L100.0100, L501.9910, L501.9985, L500.4100 #### [facility] [address] [place], [address] Calculated very low density lipoprotein (VLDL) cholesterol measurementOrdered By: Darwin Liu on 03-07-2025 Calculated very low density lipoprotein (VLDL) cholesterol measurement 20 mg/dL 5-40 [facility] Carbon dioxide, total [Moles /volume] in Central venous bloodOrdered By: Darwin Liu on 03-07-2025 CO2 [Moles/Vol] 27.0 mmol/L 21.0-32.0 [facility] Chloride assayOrdered By: Krystyna Liu on 03-07-2025 Chloride [Moles/Vol] 104 mmol/L 98-108 [facility] Comprehensive Metabolic Prof ilon 03-07-2025 Albumin [Mass/Vol] 4.4 g/dL Normal 3.5-5.0 [facility] Comment on above: Order Comment: Order Date: 08/27/24 Order Info: 0786-1 - CMP Order Info: [id number] - LIPID Order Info: [id number] - PSA Performed By: #### L 500.4050, L100.0100, L501.9910, L501.9985, L500.4100 #### [facility] [address] [place], [address] Albumin/Globulin [Mass ratio] 1.7 {ratio} Normal 0.9-2.4 [facility] Comment on above: Order Comment: Order Date: 08/27/24 Order Info: 0786-1 - CMP Order Info: [id number] - LIPID Order Info: [id number] - PSA Performed By: #### L 500.4050, L100.0100, L501.9910, L501.9985, L500.4100 #### [facility] [address] [place], [address] ALK PHOS 74 U/L Normal 40-129 [facility] Comment on above: Order Comment: Order Date: 08/27/24 Order Info: 0786-1 - CMP Order Info: [id number] - LIPID Order Info: [id number] - PSA Performed By: #### L 500.4050, L100.0100, L501.9910, L501.9985, L500.4100 #### [facility] [address] [place], [address] ALT [Catalytic activity/Vol] 66 U/L High <=46 [facility] Comment on above: Order Comment: Order Date: 08/27/24 Order Info: 0786-1 - CMP Order Info: [id number] - LIPID Order Info: [id number] - PSA Performed By: #### L 500.4050, L100.0100, L501.9910, L501.9985, L500.4100 #### [facility] [address] [place], [address] AST [Catalytic activity/Vol] 39 U/L High <=37 [facility] Comment on above: Order Comment: Order Date: 08/27/24 Order Info: 0786 - CMP Order Info: [id number] - LIPID Order Info: [id number] - PSA Performed By: #### L 500.4050, L100.0100, L501.9910, L501.9985, L500.4100 #### [facility] [address] [place], [address] Bilirubin [Mass/Vol] 0.40 mg/dL Normal 0.00-1.30 [facility] Comment on above: Order Comment: Order Date: 08/27/24 Order Info: [id number] - CMP Order Info: - LIPID Order Info: [id number] - PSA Performed By: #### L 500.4050, L100.0100, L501.9910, L501.9985, L500.4100 #### [facility] [address] [place], [place], [address] BUN/CRE 14.7 RATIO Normal 10-20 [facility] Comment on above: Order Comment: Order Date: 08/27/24 Order Info: 07 - CMP Order Info: - LIPID Order Info: [id number] - PSA Performed By: #### L 500.4050, L100.0100, L501.9910, L501.9985, L500.4100 #### [facility] [address] [place], [address] Calcium [Mass/Vol] 9.5 mg/dL Normal 7.6-11.0 [facility] Comment on above: Order Comment: Order Date: 08/27/24 Order Info: 0786 - CMP Order Info: [id number] - LIPID Order Info: [id number] - PSA Performed By: #### L 500.4050, L100.0100, L501.9910, L501.9985, L500.4100 #### [facility] [address] [place], [address] Chloride [Moles/Vol] 104 mmol/L Normal 98-108 [facility] Comment on above: Order Comment: Order Date: 08/27/24 Order Info: [id number] - CMP Order Info: [id number] - LIPID Order Info: [id number] - PSA Performed By: #### L 500.4050, L100.0100, L501.9910, L501.9985, L500.4100 #### [facility] [address] [place], [address] CO2 [Moles/Vol] 27.0 mmol/L Normal 21.0-32.0 [facility] Comment on above: Order Comment: Order Date: 08/27/24 Order Info: [id number] - CMP Order Info: - LIPID Order Info: [id number] - PSA Performed By: #### L 500.4050, L100.0100, L501.9910, L501.9985, L500.4100 #### [facility] [address] [place], [address] Creatinine [Mass/Vol] 1.07 mg/dL Normal 0.70-1.20 [facility] Comment on above: Order Comment: Order Date: 08/27/24 Order Info: [id number] - CMP Order Info: [id number] - LIPID Order Info: [id number] - PSA Performed By: #### L 500.4050, L100.0100, L501.9910, L501.9985, L500.4100 #### [facility] [address] [place], [address] GAP 10 Normal 5-15 [facility] Comment on above: Order Comment: Order Date: 08/27/24 Order Info: [id number] - CMP Order Info: [id number] - LIPID Order Info: [id number] - PSA Performed By: #### L 500.4050, L100.0100, L501.9910, L501.9985, L500.4100 #### [facility] [address] [place], [place], [address] GFR/1.73 sq M.predicted among non-blacks MDRD (S/P/Bld) [Vol rate/Area] 81 mL/min/{1.73_m2} Normal >60 [facility] Comment on above: Order Comment: Order Date: 08/27/24 Order Info: [id number] - CMP Order Info: [id number] - LIPID Order Info: 285-1 - PSA Result Comment: mL/m in/1.73m2 CKD-EPI Creatinine Equation (2020) Performed By: #### L 500.4050, L100.0100, L501.9910, L501.9985, L500.4100 #### [facility] [address] [place], [address] Globulin (S) [Mass/Vol] 2.5 g/dL Normal 2.2-4.2 [facility] Comment on above: Order Comment: Order Date: 08/27/24 Order Info: 785-11 - CMP Order Info: [id number] - LIPID Order Info: [id number] - PSA Performed By: #### L 500.4050, L100.0100, L501.9910, L501.9985, L500.4100 #### [facility] [address] [place], [address] Glucose [Mass/Vol] 102 mg/dL High 70-99 [facility] Comment on above: Order Comment: Order Date: 08/27/24 Order Info: 07- - CMP Order Info: [id number] - LIPID Order Info: [id number] - PSA Performed By: #### L 500.4050, L100.0100, L501.9910, L501.9985, L500.4100 #### [facility] [address] [place], [address] Potassium [Moles/Vol] 4.2 mmol/L Normal 3.3-5.1 [facility] Comment on above: Order Comment: Order Date: 08/27/24 Order Info: 07-1 - CMP Order Info: [id number] - LIPID Order Info: [id number] - PSA Performed By: #### L 500.4050, L100.0100, L501.9910, L501.9985, L500.4100 #### [facility] [address] [place], [address] Sodium [Moles/Vol] 141 mmol/L Normal 133-145 [facility] Comment on above: Order Comment: Order Date: 08/27/24 Order Info: 0786- - CMP Order Info: [id number] - LIPID Order Info: [id number] - PSA Performed By: #### L 500.4050, L100.0100, L501.9910, L501.9985, L500.4100 #### [facility] [address] [place], [address] T PROT 6.9 g/dL Normal 5.9-8.4 [facility] Comment on above: Order Comment: Order Date: 08/27/24 Order Info: 0786- - CMP Order Info: [id number] - LIPID Order Info: [id number] - PSA Performed By: #### L 500.4050, L100.0100, L501.9910, L501.9985, L500.4100 #### [facility] [address] [place], [address] Urea nitrogen [Mass/Vol] 16 mg/dL Normal 4-19 [facility] Comment on above: Order Comment: Order Date: 08/27/24 Order Info: 0786-1 - CMP Order Info: [id number] - LIPID Order Info: [id number] - PSA Performed By: #### L 500.4050, L100.0100, L501.9910, L501.9985, L500.4100 #### [facility] [address] [place], [address] Eosinophil percentageOrdered By: Darwin Liu on 03-07-2025 Eosinophils/100 WBC (Bld) 1.8 % 0-5 [facility] Erythrocyte distribution wid th ratioOrdered By: Darwin Liu on 03-07-2025 Erythrocyte distribution width (RBC) [Ratio] 14.2 % 11.6-14.6 [facility] Erythrocyte distribution wid th standard deviationOrdered By: Darwin Liu on 03-07-2025 Erythrocyte distribution width (RBC) [Ratio] 47.1 fl High 35.1-43.9 [facility] Glomerular filtration rate ( GFR) estimation/1.73 sq m using serum, plasma, or whole bOrdered By: Darwin Liu on 03-07-2025 GFR/1.73 sq M.predicted among non-blacks MDRD (S/P/Bld) [Vol rate/Area] 81 mL/min/{1.73_m2} >60 [facility] Comment on above: mL/min/1.73m2 CKD-EP I Creatinine Equation (2020) Hematocrit Auto (Bld) [Volum e fraction]Ordered By: Darwin Liu on 03-07-2025 Hematocrit (Bld) [Volume fraction] 43.3 % 40-54 [facility] Hemoglobin A1con 03-07-2025 HbA1c (Bld) [Mass fraction] 5.7 % Normal <=5.6 [facility] Comment on above: Order Comment: Order Date: 08/27/24 Order Info: [id number] - A1C Result Comment: Norm al < 5.7 % Prediabetic 5.7 - 6.4 % Diabetic >or= 6.5 % Please note range changes. Performed By: #### L 500.4050, L100.0100, L501.9910, L501.9985, L500.4100 #### [facility] [address] [place], [place], [address] Hemoglobin A1c percentageOrd ered By: Darwin Liu on 03-07-2025 HbA1c (Bld) [Mass fraction] 5.7 % <5.7 [facility] Comment on above: Normal < 5.7 % Predi abetic 5.7 - 6.4 % Diabetic >or= 6.5 % Please note range changes. Hemoglobin measurementOrdere d By: Darwin Liu on 03-07-2025 Hemoglobin (Bld) [Mass/Vol] 14.3 g/dL 13.0-16.5 [facility] Immature granulocytes/100 WB C Auto (Bld)Ordered By: Darwin Liu on 03-07-2025 Immature granulocytes/100 WBC (Bld) 0.400 % 0.0-0.9 [facility] Comment on above: IG% - Immature Granu locytes (promyelocytes, myelocytes and metamyelocytes) > 1% indicates that a LEFT SHIFT is Present. LDL calc ser/plasOrdered By: Darwin Liu on 03-07-2025 Cholesterol in LDL [Mass/Vol] 100 mg/dL [facility] Comment on above: Ggdcsgcpqu=065-401 m g/dL & Higher Cajm=119 mg/dL or greater Laboratory - Chemistry and C hemistry - challengeOrdered By: Darwin Liu on 03-07-2025 AST [Catalytic activity/Vol] 39 U/L High <38 [facility] Lipid Profileon 03-07-2025 CHOL:HDL 3.40 Normal [facility] [facility] Comment on above: Order Comment: Order Date: 08/27/24 Order Info: [id number] - CMP Order Info: [id number] - LIPID Order Info: [id number] - PSA Performed By: #### L 500.4050, L100.0100, L501.9910, L501.9985, L500.4100 #### [facility] [address] [place], [address] Cholesterol [Mass/Vol] 171 mg/dL Normal <=200 [facility] Comment on above: Order Comment: Order Date: 08/27/24 Order Info: [id number] - CMP Order Info: [id number] - LIPID Order Info: [id number] - PSA Result Comment: Chol esterol level, Desirable <200 mg/dL Borderline high cholesterol 200-239 mg/dL High cholesterol >=240 mg/dL Recommendations of the NCEP Adult Treatment Panel for the following risk-cutoff thresholds for the [place] population. Performed By: #### L 500.4050, L100.0100, L501.9910, L501.9985, L500.4100 #### [facility] [address] [place], [address] Cholesterol in HDL [Mass/Vol] 50 mg/dL Normal [facility] Comment on above: Order Comment: Order Date: 08/27/24 Order Info: [id number] - CMP Order Info: - LIPID Order Info: [id number] - PSA Result Comment: Linda onal Cholesterol Education Program (NCEP) guidelines: <40 mg/dL: Low HDL-cholesterol (major risk factor for CHD) >= 60 mg/dL: High HDL-cholesterol (negative risk factor for CHD) HDL-cholesterol is affected by a number of factors, e.g. smoking, exercise, hormones, sex and age. Performed By: #### L 500.4050, L100.0100, L501.9910, L501.9985, L500.4100 #### [facility] [address] [place], [address] Cholesterol in LDL [Mass/Vol] 100 mg/dL Normal [facility] Comment on above: Order Comment: Order Date: 08/27/24 Order Info: [id number] - CMP Order Info: - LIPID Order Info: [id number] - PSA Result Comment: Bord ytldpv=392-624 mg/dL Higher Zinv=858 mg/dL or greater Performed By: #### L 500.4050, L100.0100, L501.9910, L501.9985, L500.4100 #### [facility] [address] [place], [address] Cholesterol in VLDL [Mass/Vol] 20 mg/dL Normal 5-40 [facility] Comment on above: Order Comment: Order Date: 08/27/24 Order Info: [id number] - CMP Order Info: - LIPID Order Info: [id number] - PSA Performed By: #### L 500.4050, L100.0100, L501.9910, L501.9985, L500.4100 #### [facility] [address] [place], [address] Triglyceride [Mass/Vol] 102 mg/dL Normal [facility] Comment on above: Order Comment: Order Date: 08/27/24 Order Info: [id number] - CMP Order Info: [id number] - LIPID Order Info: [id number] - PSA Result Comment: The drugs N-Acetylcysteine and Metamizole may falsely depress this assay. Normal range: <150 mg/dL Borderline High: 150-199 mg/dL High: 200-499 mg/dL Very High: >500 mg/dL Performed By: #### L 500.4050, L100.0100, L501.9910, L501.9985, L500.4100 #### [facility] [address] [place], [address] MCV (mean corpuscular volume ) determinationOrdered By: Darwin Liu on 03-07-2025 MCV (RBC) [Entitic vol] 90.0 fL 80-94 [facility] Mean corpuscular hemoglobin (MCH) determinationOrdered By: Darwin Liu on 03-07-2025 MCH (RBC) [Entitic mass] 29.7 pg 27.0-32.0 [facility] Mean corpuscular hemoglobin concentration (MCHC) determinationOrdered By: Darwin Liu on 03-07-2025 MCHC (RBC) [Mass/Vol] 33.0 g/dL 32-36 [facility] Mean platelet volume determi nationOrdered By: Darwin Liu on 03-07-2025 Platelet mean volume (Bld) [Entitic vol] 10.4 fL 6.2-12.0 [facility] Monocyte percentageOrdered B y: Darwin Liu on 03-07-2025 Monocytes/100 WBC (Bld) 15.2 % High 0-10 [facility] Neutrophil percentageOrdered By: Darwin Liu on 03-07-2025 Neutrophils/100 WBC (Bld) 50.6 % 47-70 [facility] Nucleated red blood cell per centageOrdered By: Darwin Liu on 03-07-2025 Nucleated RBC/100 WBC (Bld) [Ratio] 0 % 0-5 [facility] PSA,Total - Annual Screenon 03-07-2025 PSA,TOT SCREEN 0.31 ng/mL Normal 0.02-4.00 [facility] Comment on above: Order Comment: Order Date: 08/27/24 Order Info: [id number] - CMP Order Info: [id number] - LIPID Order Info: [id number] - PSA Result Comment: This test was performed using the [employer] tPSA method. Measured values of a patient??sample can vary depending on the testing procedure used. PSA values determined on patient samples by different testing procedures cannot be used interchangeably. If there is a change in PSA assays while monitoring therapy, sequential testing should be performed to confirm baseline values. Performed By: #### L 500.4050, L100.0100, L501.9910, L501.9985, L500.4100 #### [facility] [place], [address] Platelet countOrdered By: Krystyna Liu on 03-07-2025 Platelets (Bld) [#/Vol] 222 10*3/uL 150-450 [facility] Potassium measurement (mass/ volume)Ordered By: Darwin Liu on 03-07-2025 Potassium (Unsp spec) [Mass/Vol] 4.2 mmol/L 3.3-5.1 [facility] RBC Auto (Bld) [#/Vol]Ordere d By: Darwin Liu on 03-07-2025 RBC (Bld) [#/Vol] 4.81 10*6/uL 4.6-6.2 [facility] Screening total cholesterol/ high density lipoprotein (HDL) cholesterol ratioOrdered By: Darwin Liu on 03-07-2025 Cholesterol.total/Choleste rol in HDL [Mass ratio] 3.40 {ratio} [facility] Serum creatinine measurement (mass/volume)Ordered By: Darwin Liu on 03-07-2025 Creatinine [Mass/Vol] 1.07 mg/dL 0.70-1.20 [facility] Serum globulin measurementOr dered By: Darwin Liu on 03-07-2025 Globulin (S) [Mass/Vol] 2.5 g/dL 2.2-4.2 [facility] Serum glucose measurement (m ass/volume)Ordered By: Darwin Liu on 03-07-2025 Glucose [Mass/Vol] 102 mg/dL High 70-99 [facility] Serum or plasma alanine wallace otransferase (ALT) measurementOrdered By: Darwin Liu on 03-07-2025 ALT [Catalytic activity/Vol] 66 U/L High <47 [facility] Serum or plasma albumin hanna urement (mass/volume)Ordered By: Darwin Liu on 03-07-2025 Albumin [Mass/Vol] 4.4 g/dL 3.5-5.0 [facility] Serum or plasma albumin/glob ulin mass ratioOrdered By: Darwin Liu on 03-07-2025 Albumin/Globulin [Mass ratio] 1.7 {ratio} 0.9-2.4 [facility] Serum or plasma alkaline lisandro sphatase measurementOrdered By: Drawin Liu on 03-07-2025 ALP [Catalytic activity/Vol] 74 U/L 40-129 [facility] Serum or plasma calcium hanna urement (mass/volume)Ordered By: Darwin Liu on 03-07-2025 Calcium [Mass/Vol] 9.5 mg/dL 7.6-11.0 [facility] Serum or plasma cholesterol in HDL measurement (mass/volume)Ordered By: Darwin Liu on 03-07-2025 Cholesterol in HDL [Mass/Vol] 50 mg/dL >40 [facility] Comment on above: National Cholesterol Education Program (NCEP) guidelines:<40 mg/dL: Low HDL-cholesterol (major risk factor for CHD)>= 60 mg/dL: High HDL-cholesterol (negative risk factor for CHD)HDL-cholesterol is affected by a number of factors, e.g. smoking, exercise, hormones, sex and age. Serum or plasma cholesterol measurement (mass/volume)Ordered By: Darwin Liu on 03-07-2025 Cholesterol [Mass/Vol] 171 mg/dL <201 [facility] Comment on above: Cholesterol level, D esirable <200 mg/dLBorderline high cholesterol 200-239 mg/dLHigh cholesterol >=240 mg/dLRecommendations of the NCEP Adult Treatment Panel for the following risk-cutoff thresholds for the [place] population. Serum or plasma urea nitroge n measurement (mass/volume)Ordered By: Darwin Liu on 03-07-2025 Urea nitrogen [Mass/Vol] 16 mg/dL 4-19 [facility] Sodium levelOrdered By: Darwin Liu on 03-07-2025 Sodium [Moles/Vol] 141 mmol/L 133-145 [facility] Total proteinOrdered By: Adelfo Liu on 03-07-2025 Protein [Mass/Vol] 6.9 g/dL 5.9-8.4 [facility] Triglycerides measurementOrd ered By: Darwin Liu on 03-07-2025 Triglyceride [Mass/Vol] 102 mg/dL <199 [facility] Comment on above: The drugs N-Acetylcy steine and Metamizole may falsely depress this assay. Normal range: <150 mg/dLBorderline High: 150-199 mg/dLHigh: 200-499 mg/dLVery High: >500 mg/dL White blood cell (WBC) count Ordered By: Darwin Liu on 03-07-2025 WBC (Bld) [#/Vol] 4.9 10*3/uL 4.4-11.0 [facility] EPILATION OF TRICHIASIS, FOR CEPSon 04-03-2024 [facility] Basophil percentageOrdered B y: Darwin Liu on 01-18-2024 Bilirubin [Mass/Vol] 0.40 mg/dL 0.20-1.00 [facility] Comment on above: For patients on eltr ombopag therapy, use of Dimension Barry TBIL is not recommended. Chloride [Moles/Vol] 106 mmol/L 98-107 [facility] Cholesterol [Mass/Vol] 153 mg/dL <200 [facility] Comment on above: <200 mg/dL Desirable 200-240 mg/dL Borderline >240 mg/dL High Risk Glucose [Mass/Vol] 100 mg/dL 74-106 [facility] Comment on above: Fasting Glucose resu lt from 100 to 125 mg/dL suggests IMPAIRED HOMEOSTASIS per A.D.A. criteria. Potassium [Moles/Vol] 4.0 mmol/L 3.5-5.1 [facility] Protein [Mass/Vol] 7.1 g/dL 6.4-8.2 [facility] Sodium [Moles/Vol] 140 mmol/L 136-145 [facility] Triglyceride [Mass/Vol] 105 mg/dL <199 [facility] Comment on above: The drugs N-Acetylcy steine and Metamizole may falsely depress this assay.Serum Triglycerides Reference Interval Normal <150 mg/dL Borderline high 150 - 199 mg/dL High 200 - 499 mg/dL Very High > or = 500 mg/dL Laboratory - Chemistry and C hemistry - challengeOrdered By: Darwin Liu on 01-18-2024 Albumin/Globulin [Mass ratio] 1.2 {ratio} 0.9-2.4 [facility] ALP [Catalytic activity/Vol] 64 U/L 45-117 [facility] ALT [Catalytic activity/Vol] 70 U/L 16-61 [facility] Cholesterol in HDL [Mass/Vol] 47 mg/dL >40 [facility] Comment on above: The drugs N-Acetylcy steine and Metamizole may falsely depress this assay. Reference Range HDL <40 mg/dL Low HDL Cholesterol HDL >or= 60 mg/dL High HDL Cholesterol Cholesterol in LDL [Mass/Vol] 85 mg/dL 0-130 [facility] CO2 [Moles/Vol] 28.0 mmol/L 21.0-32.0 [facility] Globulin (S) [Mass/Vol] 3.2 g/dL 2.2-4.2 [facility] Urea nitrogen/Creatinine [Mass ratio] 16.3 mg/mg 10-20 [facility] No Panel InformationOrdered By: Darwin Liu on 01-18-2024 Estimated GFR (MDRD) Amer 78 mL/min >60 [facility] Comment on above: GFR Calc Estimated GFR (MDRD) Non-Af Amer 65 mL/min >60 [facility] Comment on above: Non- GFR Calc VLDL Cholesterol 21 mg/dL 5-40 [facility] Serum or plasma calcium hanna urement (mass/volume)Ordered By: Darwin Liu on 01-18-2024 Calcium [Mass/Vol] 9.4 mg/dL 8.5-10.1 [facility] Serum or plasma creatinine m easurement (mass/volume)Ordered By: Darwin Liu on 01-18-2024 Creatinine [Mass/Vol] 1.23 mg/dL 0.70-1.30 [facility] Comment on above: The validity of the calculated GFR & GFRAA in patients over 70 years has not been determined. Clinical correlation is essential. Serum or plasma urea nitroge n measurement (mass/volume)Ordered By: Darwin Liu on 01-18-2024 Urea nitrogen [Mass/Vol] 20 mg/dL 7-18 [facility] Thin prep Papanicolaou smear with manual screeningOrdered By: Darwin Liu on 01-18-2024 Thin prep Papanicolaou smear with manual screening 3.9 g/dL 3.2-5.0 [facility] Thin prep Papanicolaou smear with manual screening 34 U/L 15-37 [facility] Thin prep Papanicolaou smear with manual screening 6 5-15 [facility] Whole blood hemoglobin A1c/t otal hemoglobin ratio (mass fraction)Ordered By: Darwin Liu on 01-18-2024 HbA1c (Bld) [Mass fraction] 5.6 % 3.8-5.6 [facility] Comment on above: Normal < 5.7 % Predi abetic 5.7 - 6.4 % Diabetic >or= 6.5 % Please note range changes. No Panel InformationOrdered By: Faizan Flores on 10-04-2023 Miscellaneous Test See comment [facility] Comment on above: Sent directly to [facility] facility per ordering physician. Basophil percentageOrdered B y: Darwin Liu on 09-13-2023 Bilirubin [Mass/Vol] 0.50 mg/dL 0.20-1.00 [facility] Comment on above: For patients on eltr ombopag therapy, use of Dimension Barry TBIL is not recommended. Chloride [Moles/Vol] 105 mmol/L 98-107 [facility] Cholesterol [Mass/Vol] 196 mg/dL <200 [facility] Comment on above: <200 mg/dL Desirable 200-240 mg/dL Borderline >240 mg/dL High Risk Glucose [Mass/Vol] 92 mg/dL 74-106 [facility] Potassium [Moles/Vol] 4.0 mmol/L 3.5-5.1 [facility] Protein [Mass/Vol] 7.4 g/dL 6.4-8.2 [facility] Sodium [Moles/Vol] 139 mmol/L 136-145 [facility] Triglyceride [Mass/Vol] 106 mg/dL <199 [facility] Comment on above: The drugs N-Acetylcy steine and Metamizole may falsely depress this assay.Serum Triglycerides Reference Interval Normal <150 mg/dL Borderline high 150 - 199 mg/dL High 200 - 499 mg/dL Very High > or = 500 mg/dL Laboratory - Chemistry and C hemistry - challengeOrdered By: Darwin Liu on 09-13-2023 ALP [Catalytic activity/Vol] 72 U/L 45-117 [facility] ALT [Catalytic activity/Vol] 74 U/L 16-61 [facility] CO2 [Moles/Vol] 30.0 mmol/L 21.0-32.0 [facility] Globulin (S) [Mass/Vol] 3.2 g/dL 2.2-4.2 [facility] Urea nitrogen/Creatinine [Mass ratio] 12.2 mg/mg 10-20 [facility] No Panel InformationOrdered By: Darwin Liu on 09-13-2023 Estimated GFR (MDRD) Amer 85 mL/min >60 [facility] Comment on above: GFR Calc Estimated GFR (MDRD) Non-Af Amer 70 mL/min >60 [facility] Comment on above: Non- GFR Calc Serum or plasma albumin hanna urement (mass/volume)Ordered By: Darwin Liu on 09-13-2023 Albumin [Mass/Vol] 4.2 g/dL 3.2-5.0 [facility] Serum or plasma albumin/glob ulin mass ratioOrdered By: Darwin Liu on 09-13-2023 Albumin/Globulin [Mass ratio] 1.3 {ratio} 0.9-2.4 [facility] Serum or plasma calcium hanna urement (mass/volume)Ordered By: Darwin Liu on 09-13-2023 Calcium [Mass/Vol] 9.3 mg/dL 8.5-10.1 [facility] Serum or plasma cholesterol in HDL measurement (mass/volume)Ordered By: Darwin Liu on 09-13-2023 Cholesterol in HDL [Mass/Vol] 60 mg/dL >40 [facility] Comment on above: The drugs N-Acetylcy steine and Metamizole may falsely depress this assay. Reference Range HDL <40 mg/dL Low HDL Cholesterol HDL >or= 60 mg/dL High HDL Cholesterol Serum or plasma cholesterol in VLDL measurement (mass/volume)Ordered By: Darwin Liu on 09-13-2023 Cholesterol in VLDL [Mass/Vol] 21 mg/dL 5-40 [facility] Serum or plasma creatinine m easurement (mass/volume)Ordered By: Darwin Liu on 09-13-2023 Creatinine [Mass/Vol] 1.15 mg/dL 0.70-1.30 [facility] Comment on above: The validity of the calculated GFR & GFRAA in patients over 70 years has not been determined. Clinical correlation is essential. Serum or plasma low density lipoprotein (LDL) cholesterol measurement (mass/volume)Ordered By: Darwin Liu on 09-13-2023 Cholesterol in LDL [Mass/Vol] 115 mg/dL 0-130 [facility] Serum or plasma urea nitroge n measurement (mass/volume)Ordered By: Darwin Liu on 09-13-2023 Urea nitrogen [Mass/Vol] 14 mg/dL 7-18 [facility] Thin prep Papanicolaou smear with manual screeningOrdered By: Darwin Liu on 09-13-2023 Thin prep Papanicolaou smear with manual screening 41 U/L 15-37 [facility] Thin prep Papanicolaou smear with manual screening 4 5-15 [facility] Whole blood hemoglobin A1c/t otal hemoglobin ratio (mass fraction)Ordered By: Darwin Liu on 09-13-2023 HbA1c (Bld) [Mass fraction] 5.7 % 3.8-5.6 [facility] Comment on above: Normal < 5.7 % Predi abetic 5.7 - 6.4 % Diabetic >or= 6.5 % Please note range changes. Absolute lymphocyte countOrd ered By: Darwin Liu on 05-29-2023 Lymphocytes Auto (Unsp spec) [#/Vol] 1.54 10*3/uL 0.83-4.51 [facility] Basophil percentageOrdered B y: Darwin Liu on 05-29-2023 Basophils/100 WBC (Bld) 0.7 % 0-1 [facility] Bilirubin [Mass/Vol] 0.40 mg/dL 0.20-1.00 [facility] Comment on above: For patients on eltr ombopag therapy, use of Dimension Barry TBIL is not recommended. Chloride [Moles/Vol] 108 mmol/L 98-107 [facility] Cholesterol [Mass/Vol] 177 mg/dL <200 [facility] Comment on above: <200 mg/dL Desirable 200-240 mg/dL Borderline >240 mg/dL High Risk Eosinophils/100 WBC (Bld) 1.5 % 0-5 [facility] Glucose [Mass/Vol] 97 mg/dL 74-106 [facility] Neutrophils (Bld) [#/Vol] 1.9 10*3/uL 2.0-7.7 [facility] Neutrophils/100 WBC (Bld) 46.1 % 47-70 [facility] Potassium [Moles/Vol] 4.1 mmol/L 3.5-5.1 [facility] Protein [Mass/Vol] 6.8 g/dL 6.4-8.2 [facility] Sodium [Moles/Vol] 140 mmol/L 136-145 [facility] Triglyceride [Mass/Vol] 126 mg/dL <199 [facility] Comment on above: The drugs N-Acetylcy steine and Metamizole may falsely depress this assay.Serum Triglycerides Reference Interval Normal <150 mg/dL Borderline high 150 - 199 mg/dL High 200 - 499 mg/dL Very High > or = 500 mg/dL WBC (Bld) [#/Vol] 4.0 10*3/uL 4.4-11.0 [facility] Blood erythrocytes count (nu mber/volume)Ordered By: Darwin Liu on 05-29-2023 RBC (Bld) [#/Vol] 4.81 10*6/uL 4.6-6.2 [facility] Blood hemoglobin measurement (mass/volume)Ordered By: Darwin Liu on 05-29-2023 Hemoglobin (Bld) [Mass/Vol] 14.2 g/dL 13.0-16.5 [facility] Blood lymphocytes/100 leukoc ytesOrdered By: Darwin Liu on 05-29-2023 Lymphocytes/100 WBC (Bld) 38.1 % 19-41 [facility] Blood monocytes/100 leukocyt esOrdered By: Darwin Liu on 05-29-2023 Monocytes/100 WBC (Bld) 13.4 % 0-10 [facility] Blood platelet mean volumeOr dered By: Darwin Liu on 05-29-2023 Platelet mean volume (Bld) [Entitic vol] 10.3 fL 6.2-12.0 [facility] Determination of erythrocyte mean corpuscular volume (MCV)Ordered By: Darwin Liu on 05-29-2023 MCV (RBC) [Entitic vol] 90.9 fL 80-94 [facility] Hematocrit Auto (Bld) [Volum e fraction]Ordered By: Darwin Liu on 05-29-2023 Hematocrit (Bld) [Volume fraction] 43.7 % 40-54 [facility] - Chemistry and C hemistry - challengeOrdered By: Darwin Liu on 05-29-2023 ALP [Catalytic activity/Vol] 70 U/L 45-117 [facility] ALT [Catalytic activity/Vol] 57 U/L 16-61 [facility] CO2 [Moles/Vol] 29.0 mmol/L 21.0-32.0 [facility] Globulin (S) [Mass/Vol] 2.9 g/dL 2.2-4.2 [facility] Urea nitrogen/Creatinine [Mass ratio] 19.8 mg/mg 10-20 [facility] - Hematology and Cell countsOrdered By: Darwin Liu on 05-29-2023 Erythrocyte distribution width (RBC) [Entitic vol] 47.0 fL 35.1-43.9 [facility] Erythrocyte distribution width (RBC) [Ratio] 14.1 % 11.6-14.6 [facility] Immature granulocytes/100 WBC (Bld) 0.200 % 0.0-0.9 [facility] Comment on above: IG% - Immature Granu locytes (promyelocytes, myelocytes and metamyelocytes) > 1% indicates that a LEFT SHIFT is Present. MCH (RBC) [Entitic mass] 29.5 pg 27.0-32.0 [facility] Nucleated RBC/100 WBC (Bld) [Ratio] 0 % 0-5 [facility] Auto (RBC) [Mass/Vol]Or dered By: Darwin Liu on 05-29-2023 MCHC (RBC) [Mass/Vol] 32.5 g/dL 32-36 [facility] No Panel InformationOrdered By: Darwin Liu on 05-29-2023 Prostate Specific Antigen Screen 0.31 ng/mL 0.00-4.00 [facility] Comment on above: This test was perfor med using the TPSA assay method for the[employer] chemistry system. Values obtained with differentassay methods cannot be used interchangably.When changing PSA assays in the course of monitoring apatient, additional sequential testing should be carriedout to confirm baseline values. Estimated GFR (MDRD) Amer 93 mL/min >60 [facility] Comment on above: GFR Calc Estimated GFR (MDRD) Non-Af Amer 77 mL/min >60 [facility] Comment on above: Non- GFR Calc Platelets bldOrdered By: Adelfo Liu on 05-29-2023 Platelets (Bld) [#/Vol] 204 10*3/uL 150-450 [facility] Serum or plasma albumin hanna urement (mass/volume)Ordered By: Darwin Liu on 05-29-2023 Albumin [Mass/Vol] 3.9 g/dL 3.2-5.0 [facility] Serum or plasma albumin/glob ulin mass ratioOrdered By: Darwin Liu on 05-29-2023 Albumin/Globulin [Mass ratio] 1.3 {ratio} 0.9-2.4 [facility] Serum or plasma calcium hanna urement (mass/volume)Ordered By: Darwin Liu on 05-29-2023 Calcium [Mass/Vol] 8.7 mg/dL 8.5-10.1 [facility] Serum or plasma cholesterol in HDL measurement (mass/volume)Ordered By: Darwin Liu on 05-29-2023 Cholesterol in HDL [Mass/Vol] 52 mg/dL >40 [facility] Comment on above: The drugs N-Acetylcy steine and Metamizole may falsely depress this assay. Reference Range HDL <40 mg/dL Low HDL Cholesterol HDL >or= 60 mg/dL High HDL Cholesterol Serum or plasma cholesterol in VLDL measurement (mass/volume)Ordered By: Dariwn Liu on 05-29-2023 Cholesterol in VLDL [Mass/Vol] 25 mg/dL 5-40 [facility] Serum or plasma creatinine m easurement (mass/volume)Ordered By: Darwin Liu on 05-29-2023 Creatinine [Mass/Vol] 1.06 mg/dL 0.70-1.30 [facility] Comment on above: The validity of the calculated GFR & GFRAA in patients over 70 years has not been determined. Clinical correlation is essential. Serum or plasma low density lipoprotein (LDL) cholesterol measurement (mass/volume)Ordered By: Darwin Liu on 05-29-2023 Cholesterol in LDL [Mass/Vol] 100 mg/dL 0-130 [facility] Serum or plasma urea nitroge n measurement (mass/volume)Ordered By: Darwin Liu on 05-29-2023 Urea nitrogen [Mass/Vol] 21 mg/dL 7-18 [facility] Thin prep Papanicolaou smear with manual screeningOrdered By: Darwin Liu on 05-29-2023 Thin prep Papanicolaou smear with manual screening 29 U/L 15-37 [facility] Thin prep Papanicolaou smear with manual screening 3 5-15 [facility] Whole blood hemoglobin A1c/t otal hemoglobin ratio (mass fraction)Ordered By: Darwin Liu on 05-29-2023 HbA1c (Bld) [Mass fraction] 5.6 % 3.8-5.6 [facility] Comment on above: Normal < 5.7 % Predi abetic 5.7 - 6.4 % Diabetic >or= 6.5 % Please note range changes. Albumin Elph [Mass/Vol]Order ed By: Dr. Perez on 02-24-2023 Albumin [Mass/Vol] 4.1 g/dL 2.9-4.4 [facility] Interpretation of serum or p lasma protein pattern by immunofixation (narrative resultOrdered By: Dr. Perez on 02-24-2023 Protein Fractions Immunofixation Galindo [Interp] See comment [facility] Comment on above: NOT OBSERVED Laboratory - Chemistry and C hemistry - challengeOrdered By: Dr. Perez on 02-24-2023 Cobalamin (Vitamin B12) [Mass/Vol] 452 pg/mL 211-911 [facility] No Panel InformationOrdered By: Dr. Preez on 02-24-2023 Addendum Document Comment . [facility] Comment on above: Protein electrophore sis scan will follow via computer,mail, or pulp bleacher delivery. Thyroid Stimulating Hormone (TSH) 1.84 uIU/mL 0.358-3.74 [facility] No Panel InformationOrdered By: Sebastian Perez on 02-24-2023 Anti-Nuclear Antibody Screen Negative Negative [facility] Comment on above: Performed at: [employer] [address] [id number] Director: Marcelo Vidal PhD, Phone: [phone] at: [employer] [address] [id number] Director: Azalea Soriano MD, Phone: [phone] UNDERCOLLAR BASTER Antibody 0.2 AI 0.0-0.9 [facility] Serum Cordova extractable nucl ear antibody detectionOrdered By: Sebastian Perez on 02-24-2023 Cordova extractable nuclear Ab Ql (S) <0.2 AI 0.0-0.9 [facility] Serum [id number] measu rement by electrophoresisOrdered By: Dr. Perez on 02-24-2023 Alpha 1 globulin Elph [Mass/Vol] 0.2 g/dL 0.0-0.4 [facility] Alpha 1 globulin Elph [Mass/Vol] 0.6 g/dL 0.4-1.0 [facility] Serum cyclic citrullinated p eptide IgG antibody assay (units/volume)Ordered By: Dr. Perez on 02-24-2023 Cyclic citrullinated peptide IgG Qn 8 units 0-19 [facility] Comment on above: Negative <20 Weak po sitive 20 - 39 Moderate positive 40 - 59 Strong positive >59Performed at: [employer] [facility] [address] [id number] Director: Marcelo Vidal PhD, Phone: [phone] Serum globulin measurement ( mass/volume)Ordered By: Dr. Perez on 02-24-2023 Globulin (S) [Mass/Vol] 2.5 g/dL 2.2-3.9 [facility] Serum or plasma IgA measurem ent (mass/volume)Ordered By: Dr. Perez on 02-24-2023 IgA [Mass/Vol] 141 mg/dL 90-386 [facility] Serum or plasma IgG measurem ent (mass/volume)Ordered By: Dr. Perez on 02-24-2023 IgG [Mass/Vol] 859 mg/dL [phone] [facility] Serum or plasma IgM measurem ent (mass/volume)Ordered By: Dr. Perez on 02-24-2023 IgM [Mass/Vol] 80 mg/dL 20-172 [facility] Serum or plasma beta globuli n measurement by electrophoresis (mass/volume)Ordered By: Dr. Perez on 02-24-2023 Beta globulin Elph [Mass/Vol] 0.9 g/dL 0.7-1.3 [facility] Serum or plasma folate measu rement (mass/volume)Ordered By: Dr. Perez on 02-24-2023 Folate [Mass/Vol] 24.70 ng/mL 3.1-55.4 [facility] Serum or plasma gamma globul in measurement by electrophoresis (mass/volume)Ordered By: Dr. Perez on 02-24-2023 Gamma globulin Elph [Mass/Vol] 0.8 g/dL 0.4-1.8 [facility] Serum or plasma immunoelectr ophoresis interpretation (nominal result)Ordered By: Dr. Perez on 02-24-2023 Interpretation IEP [Interp] Comment . [facility] Comment on above: No monoclonality det ected. Serum or plasma methylmalona te measurement (moles/volume)Ordered By: Sebastian Perez on 02-24-2023 Methylmalonate [Moles/Vol] 228 nmol/L 0-378 [facility] Serum rheumatoid factor dete ctionOrdered By: Dr. Perez on 02-24-2023 Rheumatoid factor Ql (S) < 10.0 IU/mL <15 [facility] Thin prep Papanicolaou smear with manual screeningOrdered By: Dr. Perez on 02-24-2023 Thin prep Papanicolaou smear with manual screening 1.7 0.7-1.7 [facility] Total protein bloodOrdered B y: Dr. Perez on 02-24-2023 Protein [Mass/Vol] 6.6 g/dL 6.0-8.5 [facility] Absolute lymphocyte countOrd ered By: Dr. Liu on 12-22-2022 Lymphocytes Auto (Unsp spec) [#/Vol] 1.32 10*3/uL 0.83-4.51 [facility] Basophil percentageOrdered B y: Dr. Liu on 12-22-2022 Basophils/100 WBC (Bld) 0.7 % 0-1 [facility] Cholesterol [Mass/Vol] 153 mg/dL <200 [facility] Comment on above: <200 mg/dL Desirable 200-240 mg/dL Borderline >240 mg/dL High Risk Eosinophils/100 WBC (Bld) 2.2 % 0-5 [facility] Neutrophils (Bld) [#/Vol] 2.1 10*3/uL 2.0-7.7 [facility] Neutrophils/100 WBC (Bld) 50.9 % 47-70 [facility] Triglyceride [Mass/Vol] 97 mg/dL <199 [facility] Comment on above: The drugs N-Acetylcy steine and Metamizole may falsely depress this assay.Serum Triglycerides Reference Interval Normal <150 mg/dL Borderline high 150 - 199 mg/dL High 200 - 499 mg/dL Very High > or = 500 mg/dL WBC (Bld) [#/Vol] 4.1 10*3/uL 4.4-11.0 [facility] Blood erythrocytes count (nu mber/volume)Ordered By: Dr. Liu on 12-22-2022 RBC (Bld) [#/Vol] 5.08 10*6/uL 4.6-6.2 [facility] Blood hemoglobin measurement (mass/volume)Ordered By: Dr. Liu on 12-22-2022 Hemoglobin (Bld) [Mass/Vol] 15.0 g/dL 13.0-16.5 [facility] Blood lymphocytes/100 leukoc ytesOrdered By: Dr. Liu on 12-22-2022 Lymphocytes/100 WBC (Bld) 31.9 % 19-41 [facility] Blood monocytes/100 leukocyt esOrdered By: Dr. Liu on 12-22-2022 Monocytes/100 WBC (Bld) 14.3 % 0-10 [facility] Blood platelet mean volumeOr dered By: Dr. Liu on 12-22-2022 Platelet mean volume (Bld) [Entitic vol] 10.3 fL 6.2-12.0 [facility] Determination of erythrocyte mean corpuscular volume (MCV)Ordered By: Dr. Liu on 12-22-2022 MCV (RBC) [Entitic vol] 91.3 fL 80-94 [facility] Hematocrit Auto (Bld) [Volum e fraction]Ordered By: Dr. Liu on 12-22-2022 Hematocrit (Bld) [Volume fraction] 46.4 % 40-54 [facility] Laboratory - Hematology and Cell countsOrdered By: Dr. Liu on 12-22-2022 Erythrocyte distribution width (RBC) [Entitic vol] 47.1 fL 35.1-43.9 [facility] Erythrocyte distribution width (RBC) [Ratio] 13.9 % 11.6-14.6 [facility] Immature granulocytes/100 WBC (Bld) 0.000 % 0.0-0.9 [facility] Comment on above: IG% - Immature Granu locytes (promyelocytes, myelocytes and metamyelocytes) > 1% indicates that a LEFT SHIFT is Present. MCH (RBC) [Entitic mass] 29.5 pg 27.0-32.0 [facility] Nucleated RBC/100 WBC (Bld) [Ratio] 0 % 0-5 [facility] MCHC Auto (RBC) [Mass/Vol]Or dered By: Dr. Liu on 12-22-2022 MCHC (RBC) [Mass/Vol] 32.3 g/dL 32-36 [facility] Platelets bldOrdered By: Dr. Liu on 12-22-2022 Platelets (Bld) [#/Vol] 204 10*3/uL 150-450 [facility] Serum or plasma cholesterol in HDL measurement (mass/volume)Ordered By: Dr. Liu on 12-22-2022 Cholesterol in HDL [Mass/Vol] 50 mg/dL >40 [facility] Comment on above: The drugs N-Acetylcy steine and Metamizole may falsely depress this assay. Reference Range HDL <40 mg/dL Low HDL Cholesterol HDL >or= 60 mg/dL High HDL Cholesterol Serum or plasma cholesterol in VLDL measurement (mass/volume)Ordered By: Dr. Liu on 12-22-2022 Cholesterol in VLDL [Mass/Vol] 19 mg/dL 5-40 [facility] Serum or plasma low density lipoprotein (LDL) cholesterol measurement (mass/volume)Ordered By: Dr. Liu on 12-22-2022 Cholesterol in LDL [Mass/Vol] 84 mg/dL 0-130 [facility] Whole blood hemoglobin A1c/t otal hemoglobin ratio (mass fraction)Ordered By: Dr. Liu on 12-22-2022 HbA1c (Bld) [Mass fraction] 5.5 % 3.8-5.6 [facility] Comment on above: Normal < 5.7 % Predi abetic 5.7 - 6.4 % Diabetic >or= 6.5 % Please note range changes. Whole blood hemoglobin A1c/t otal hemoglobin ratio (mass fraction)on 08-18-2022 HbA1c (Bld) [Mass fraction] 5.8 % 3.8-5.6 [facility] Work Phone: Comment on above: Normal < 5.7 % Predi abetic 5.7 - 6.4 % Diabetic >or= 6.5 % Please note range changes. Basophil percentageon 2021 Bilirubin [Mass/Vol] 0.80 mg/dL 0.20-1.00 [facility] Work Phone: Comment on above: For patients on eltr ombopag therapy, use of Dimension Barry TBIL is not recommended. Chloride [Moles/Vol] 104 mmol/L 98-107 [facility] Work Phone: Cholesterol [Mass/Vol] 187 mg/dL <200 [facility] Work Phone: Comment on above: <200 mg/dL Desirable 200-240 mg/dL Borderline >240 mg/dL High Risk Glucose [Mass/Vol] 104 mg/dL 74-106 [facility] Work Phone: Comment on above: Fasting Glucose resu lt from 100 to 125 mg/dL suggests IMPAIRED HOMEOSTASIS per A.D.A. criteria. Potassium [Moles/Vol] 4.3 mmol/L 3.5-5.1 [facility] Work [facility]: Protein [Mass/Vol] 7.3 g/dL 6.4-8.2 [facility] Work Phone: Sodium [Moles/Vol] 138 mmol/L 136-145 [facility] Work Phone: Triglyceride [Mass/Vol] 92 mg/dL <199 [facility] Work Phone: Comment on above: The drugs N-Acetylcy steine and Metamizole may falsely depress this assay.Serum Triglycerides Reference Interval Normal <150 mg/dL Borderline high 150 - 199 mg/dL High 200 - 499 mg/dL Very High > or = 500 mg/dL Laboratory - Chemistry and C hemistry - challengeon 08-17-2022 ALP [Catalytic activity/Vol] 74 U/L 45-117 [facility] Work Phone: ALT [Catalytic activity/Vol] 58 U/L 16-61 [facility] Work Phone: CO2 [Moles/Vol] 28.0 mmol/L 21.0-32.0 [facility] Work Phone: Globulin (S) [Mass/Vol] 3.3 g/dL 2.2-4.2 [facility] Work Phone: Urea nitrogen/Creatinine [Mass ratio] 13.1 mg/mg 10-20 [facility] Work Phone: No Panel Informationon 08-17 Estimated GFR (MDRD) Amer 92 mL/min >60 [facility] Work Phone: Comment on above: GFR Calc Estimated GFR (MDRD) Non-Af Amer 76 mL/min >60 [facility] Work Phone: Comment on above: Non- GFR Calc Serum or plasma albumin hanna urement (mass/volume)on 08-17-2022 Albumin [Mass/Vol] 4.0 g/dL 3.2-5.0 [facility] Work Phone: Serum or plasma albumin/glob ulin mass ratioon 08-17-2022 Albumin/Globulin [Mass ratio] 1.2 {ratio} 0.9-2.4 [facility] Work Phone: [phone] Serum or plasma calcium hanna urement (mass/volume)on 08-17-2022 Calcium [Mass/Vol] 9.3 mg/dL 8.5-10.1 [facility] Work Phone: [phone] Serum or plasma cholesterol in HDL measurement (mass/volume)on 08-17-2022 Cholesterol in HDL [Mass/Vol] 53 mg/dL >40 [facility] Work Phone: Comment on above: The drugs N-Acetylcy steine and Metamizole may falsely depress this assay. Reference Range HDL <40 mg/dL Low HDL Cholesterol HDL >or= 60 mg/dL High HDL Cholesterol Serum or plasma cholesterol in VLDL measurement (mass/volume)on 08-17-2022 Cholesterol in VLDL [Mass/Vol] 18 mg/dL 5-40 [facility] Work Phone: [phone] Serum or plasma creatinine m easurement (mass/volume)on 08-17-2022 Creatinine [Mass/Vol] 1.07 mg/dL 0.70-1.30 [facility] Work Phone: Comment on above: The validity of the calculated GFR & GFRAA in patients over 70 years has not been determined. Clinical correlation is essential. Serum or plasma low density lipoprotein (LDL) cholesterol measurement (mass/volume)on 08-17-2022 Cholesterol in LDL [Mass/Vol] 116 mg/dL 0-130 [facility] Work Phone: [phone] Serum or plasma urea nitroge n measurement (mass/volume)on 08-17-2022 Urea nitrogen [Mass/Vol] 14 mg/dL 7-18 [facility] Work Phone: [phone] Thin prep Papanicolaou smear with manual screeningon 08-17-2022 Thin prep Papanicolaou smear with manual screening 31 U/L 15-37 [facility] Work Phone: [phone] Thin prep Papanicolaou smear with manual screening 6 5-15 [facility] Work Phone: Vital Signs Date Time Vital Sign Value Performing Clinician Destin telles 01-09-2023 15:26-0500 Body temperature 98.3 [degF] Dr. Darwin Liu Work Phone: [facility] 01-09-2023 15:26-0500 Diastolic blood pressure 74 mm[Hg] Dr. Darwin Liu Work Phone: [facility] 01-09-2023 15:26-0500 Heart rate 60 /min Dr. Darwin Liu Work Phone: [facility] 01-09-2023 15:26-0500 Respiratory rate 16 /min Dr. Darwin Liu Work Phone: [facility] 01-09-2023 15:26-0500 SaO2% (BldA) [Mass fraction] 97 % Dr. Darwin Liu Work Phone: [facility] 01-09-2023 15:26-0500 Systolic blood pressure 136 mm[Hg] Dr. Darwin Liu Work Phone: [facility] Encounters Encounter Date Encounter Type Care Provider Facility Start: 09-11-2025 End: 09-11-2025 ambulatory MABEL STOCKTON Facility:[facility] Start: 09-09-2025 ambulatory Darwin Grayson y:[facility] Start: 07-22-2025 End: 07-22-2025 ambulatory MABEL STOCKTON Facility:[facility] Start: 07-22-2025 End: 07-22-2025 Patient encounter procedure Mabel Stockton OD Work Phone: [facility] Comment on above: Wears contact lenses (Primary Dx) Start: 06-24-2025 End: 06-24-2025 Patient encounter procedure Mabel Stockton OD Work Phone: [facility] Comment on above: Ocular rosacea (Prim martha Dx); Dry eye syndrome of bilateral lacrimal glands; 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; Wears contact lenses Start: 06-24-2025 End: 06-24-2025 ambulatory MABEL STOCKTON Facility:[facility] Start: 05-21-2025 End: 05-21-2025 Patient encounter procedure Mabel Stockton OD Work Phone: [facility] Comment on above: Ocular rosacea (Prim martha Dx); Dry eye syndrome of bilateral lacrimal glands; 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 Darwin Liu MD Work Phone: [facility] Work Phone: Start: 03-17-2025 End: 03-17-[address] Darwin Liu MD -Ultrasound [facility] Work Phone: Start: 03-17-2025 End: 03-17-2025 ambulatory Darwin Liu Facility:[facility] Start: 03-07-2025 End: 03-07-[address] Darwin Liu MD Work Phone: [facility] Work Phone: Start: 03-07-2025 End: 03-07-[address] Darwin Liu MD -Laboratory, [place] Work Phone: Start: 03-07-2025 End: 03-07-2025 ambulatory Darwin Liu Facility:[facility] Start: 01-17-2025 End: 01-17-[address] Darwin Liu MD Work Phone: [facility] Work Phone: Start: 01-17-2025 End: 01-17-[address] Faizan Flores MD -Laboratory Work Phone: Start: 01-17-2025 End: 01-17-2025 [facility] Start: 10-16-2024 End: 10-16-2024 Refill Hilario Schwartz MD Work Phone: Ophthalmology Comment on above: Refill Request Start: 04-26-2024 End: 04-26-2024 Patient encounter procedure Mabel Stockton OD Work Phone: [facility] Comment on above: Wears contact lenses (Primary Dx) Start: 04-03-2024 End: 04-03-2024 Patient encounter procedure Mabel Stockton OD Work Phone: [facility] Comment on above: Trichiasis without e ntropion of right lower eyelid (Primary Dx); Ocular rosacea; Dry eye syndrome of bilateral lacrimal glands; Wears contact lenses Start: 03-11-2024 End: 03-11-2024 Patient encounter procedure Mabel Stockton OD Work Phone: [facility] Comment on above: Ocular rosacea (Prim martha Dx); Dry eye syndrome of bilateral lacrimal glands; Meibomian gland 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; Wears contact lenses Start: 02-21-2024 End: 02-21-2024 Patient encounter procedure Mabel Stockton OD Work Phone: [facility] Comment on above: Dry eye syndrome of bilateral lacrimal glands (Primary Dx); Meibomian gland 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; Ocular rosacea; Ptosis of both eyelids; Wears contact lenses Start: 02-08-2024 End: 02-08-2024 Patient encounter procedure Hilario Schwartz MD Work Phone: [facility]mology Comment on above: Dry eye syndrome of bilateral lacrimal glands (Primary Dx); Meibomian gland 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; Ptosis of both eyelids; Other chronic allergic conjunctivitis of both eyes Start: 01-18-2024 End: 01-18-2024 ambulatory [facility] Work Phone: Start: 01-18-2024 End: 01-18-2024 Patient encounter procedure [facility] Work Phone: Start: 10-04-2023 End: 10-04-2023 ambulatory [facility] Work Phone: Start: 10-04-2023 End: 10-04-2023 Patient encounter procedure [facility] Work Phone: Start: 09-13-2023 End: 09-13-2023 Patient encounter procedure [facility] Work Phone: Start: 05-29-2023 End: 05-29-2023 ambulatory [facility] Work Phone: Start: 05-29-2023 End: 05-29-2023 Patient encounter procedure [facility] Work Phone: Start: 05-19-2023 End: 05-19-2023 ambulatory [facility] Work Phone: Start: 05-19-2023 End: 05-19-2023 Patient encounter procedure [facility] Work Phone: Start: 02-24-2023 End: 02-24-[address] Darwin Liu Work Phone: [facility] Work Phone: Start: 02-24-2023 End: 02-24-[address] Darwin Liu Work Phone: [facility] Start: 01-09-2023 End: 01-09-[address] Darwin Liu Work Phone: [facility] Start: 12-22-2022 End: 12-22-2022 ambulatory [facility] Work Phone: Start: 12-22-2022 End: 12-22-2022 Patient encounter procedure [facility] Start: 11-02-2022 End: 11-02-2022 ambulatory [facility] Work Phone: Start: 11-02-2022 End: 11-02-2022 Patient encounter procedure [facility]-Pulmonary Services/Neurology Start: 08-17-2022 End: 08-17-2022 ambulatory [facility] Work Phone: Start: 08-17-2022 End: 08-17-2022 Patient encounter procedure [facility]-Laboratory, [facility] Procedures Date Procedure Procedure Detail Performing Clinician Start: 06-24-2025 Cmptr ophthalmic dx img ant segmt w/i&r uni/bi Mabel Stockton OD Work Phone: Start: 05-21-2025 Cmptr ophthalmic dx img ant segmt w/i&r uni/bi Mabel Stockton OD Work Phone: Start: 03-17-[address] Darwin Liu MD Work Phone: Start: 03-07-2025 Prostate specific an tigen measurement Dr. Darwin Liu MD Work Phone: Comment on above: This test was perfor med using the [employer] tPSA method. Measured values of a patient sample can vary depending on the testing procedure used. PSA values determined on patient samples by different testing procedures cannot be used interchangeably. If there is a change in PSA assays while monitoring therapy, sequential testing should be performed to confirm baseline values. Start: 04-03-2024 Correction trichiasi s epilation forceps only Mabel Stockton OD Work Phone: Start: 11-05-2012 Lipid 1996 panel - S jamel or Plasma Hilario Schwartz MD Work Phone: Plan of Treatment Date Care Activity Detail Author Start: 11-06-2026 Urine microalbumin profile DTaP,Tdap,Td Vaccine (2 - Td or Tdap) [facility] Start: 08-28-2025 End: 08-28-2025 Patient encounter procedure 08/28/2025 3:00 PM EDT Office Visit [facility] [address] [place] [address] Mabel Stockton, OD [address] [facility] [address] [place] [address] Return in about 5 weeks (around 08/28/2025) for scleral lens evaluation 3pm - per EK [facility] Comment on above: Return in about 5 we eks (around 08/28/2025) for scleral lens evaluation 3pm - per EK Start: 07-22-2025 End: 07-22-2025 Patient encounter procedure 07/22/2025 11:30 AM EDT Office Visit OP[facility] [address] [place] [address] Mabel Stockton, OD [address] [facility] [address] [place] [address] Diagn[facility] [address] [address] Return in about 4 weeks (around 07/22/2025) for scleral contact lens evaluation 11:30 arrive 11:15 [facility] Comment on above: Return in about 4 we eks (around 07/22/2025) for scleral contact lens evaluation 11:30 arrive 11:15 Start: 07-07-2025 Influenza vaccination [facility] Start: 06-24-2025 End: 06-24-2025 Patient encounter procedure 06/24/2025 10:30 AM EDT Office Visit OPHT [facility] [address] [place] [address] Mabel Stockton, OD [address] [facility] [address] [place] [address] [facility] [address] [address] Return in about 4 weeks (around 06/18/2025) for scleral lens evaluaiton . [facility] Comment on above: Return in about 4 we eks (around 06/18/2025) for scleral lens evaluaiton . Start: 05-02-2025 End: 05-02-2025 Patient encounter procedure [facility] Comment on above: Return in about 1 ye ar (around 04/26/2025) for scleral CL evaluation. scleral CL evaluatio n. Start: 07-07-2024 Covid-19 Vaccine ( season) Covid-19 Vaccine () [facility] Start: 07-07-2024 Influenza vaccination [facility] Start: 04-26-2024 End: 04-26-2024 Patient encounter procedure 04/26/2024 10:30 AM EDT Office Visit OP[facility] [address] [facility] [place] [address] Mabel Stockton, OD [address] [facility] [address] [place] [address] Return in about 23 days (around 04/26/2024) for scleral lens evaluation 10:30 . [facility] Comment on above: Return in about 23 d ays (around 04/26/2024) for scleral lens evaluation 10:30 . Start: 04-03-2024 End: 04-03-2024 Patient encounter procedure 04/03/2024 10:30 AM EDT Office Visit [facility] [address] [facility] [place] [address] Mabel Stockton, OD [address] [facility] [address] [place] [address] Return in about 23 days (around 04/03/2024) for scleral lens evaluation (30 min). [facility] Comment on above: Return in about 23 d ays (around 04/03/2024) for scleral lens evaluation (30 min). Start: 11-06-2023 Behavioral Health Screening Behavioral Health Screening [facility] Start: 10-04-2023 Procedure [facility] Start: 07-07-2023 Covid-19 Vaccine () Covid-19 Vaccine () [facility] Start: 05-19-2023 Procedure [facility] Start: 02-24-2023 Methylmalonate measurement [facility] Start: 02-24-2023 [facility] Start: 2022 Prostate specific antigen measurement Prostate Cancer Screening Discussion [facility] Start: 2017 Pneumococcal Vaccine : 50+ (1 of 1 - PCV) Pneumococcal Vaccine: 50+ (1 of 1 - PCV) [facility] Start: 11-05-2017 Lipid panel Lipid Screening [facility] Start: 11-05-2015 Diabetes Screening Diabetes Screenin g [facility] Start: 2012 Prostate specific antigen measurement Prostate Cancer Screening Discussion [facility] Start: 2012 Screening for malign ant neoplasm of colon [facility] Start: 1986 Hepatitis B Vaccine (1 of 3 - 19+ 3-dose series) Hepatitis B Vaccine (1 of 3 - 19+ 3-dose series) [facility] Start: 1985 Anxiety Screening Anxiety Screening [facility] Start: 1985 Depression Screening Depression Scre ening [facility] Start: 1985 Hepatitis C screening Hepatitis C Sc reening [facility] Start: 1985 HIV screening HIV Screening [facility] Nuclear Ab [Presence ] in Serum [facility] extractable nuclear Ab [Presence] in Serum [facility] Immunizations Immunization Date Immunization Notes Care Provider Taran nicholson 08-26-2024 influenza virus vacc ine, unspecified formulation Mabel Stockton OD Work Phone: [facility] 08-16-2022 influenza virus vacc ine, unspecified formulation Hilario Schwartz MD Work Phone: [facility] Payers Date Payer Category Payer Self-pay [id number] 2025 Self-pay [id number] 2023 Private Health Insurance [employer] [id number] 2023 Unknown [employer] PPO [id number] 2023-Present [phone] [address] [place] [address] PPO [id number] 2023 Unknown [id number] Private Health Insurance [employer] [id number] Unknown [id number] Unknown [id number] Unknown [id number] Unknown [id number] Social History Date Type Detail Facility Start: 09-02-2021 End: 01-09-2023 Tobacco smoking status GAIS Unknown if ever smoked [facility] Start: 08-15-2018 Non-smoker [facility] Start: 1965 Sex Assigned At Male [facility] Start: 11-13-2012 End: 01-09-2023 Tobacco smoking status GAIS Never smoked tobacco [facility] Start: 11-13-2012 Tobacco use and exposure Smokeless tobacco non-user [facility] Start: 02-08-2024 End: 07-22-2025 Alcohol intake Current drinker of alcohol (finding) [facility] Start: 02-08-2024 End: 03-11-2024 Alcohol intake [facility] Start: 02-08-2024 End: 03-11-2024 Tobacco use panel [facility] Start: 10-07-2012 National Score (1-100), lower number is lower risk 35 [facility] Start: 07-16-2009 Alcohol Comment occasional, wine onl y [facility] Start: 1965 Sex Assigned At Not on file C [facility] Start: 01-28-2025 Sex Male (finding) [facility] Clinical Notes 02-08-2024 to 09-12-2025 Mabel Stockton, ERNIE - 07/22/2025 2:01 PM EDTMabel Stockton, ERNIE - 06/24/2025 12:30 PM EDMabel Sun, ERNIE - 05/21/2025 3:49 PM EDTTelephone Encounter - Annette Martinez - 04/09/2025 10:14 AM EDT Note Date & Type Note Facility 09-12-2025 Note HNO ID: [id number] Author: MABEL STOCKTON OD Service: ? Author Type: Security Intern Type: Progress Notes Filed: 09/12/2025 11:30 Note Text: Assessment/Plan: 1. Wears contact lenses (Primary) Consultation sent wrong lens for replacement when lens OD from Jul arrived with a crack in it. This is why OD wasn't fitting well at appointment. Ordering new lenses with adjustments made to Jul 2025 order and shipping lenses to patient. Called and left VM advising to go back to previous order from June 2025. - OCT ANTERIOR SEGMENT CIRRUS OU (BOTH EYES) Mabel Stockton OD RTC as planned for follow up [facility] 07-22-2025 Note HNO ID: [id number] Author: MABEL STOCKTON OD Service: ? Author Type: Security Intern Type: Progress Notes Filed: 07/22/2025 14:02 Note Text: Assessment/Plan: 1. Wears contact lenses (Primary) Shipping new lenses to patient home([id number]). RTC for evaluation @ [facility] in 4 weeks. Mabel Stockton OD RTC 4 weeks ([facility] office) [facility] 07-22-2025 History of Presen t illness Narrative Assessment/Plan: 1. Wears contact lenses (Primary) Shipping new lenses to patient home([id number]). RTC for evaluation @ [facility] in 4 weeks. Mabel Stockton, OD RTC 4 weeks ([facility] office) documented in this encounter [facility] 06-24-2025 Note HNO ID: [id number] Author: MABEL STOCKTON, ERNIE Service: ? Author Type: Security Intern Type: Progress Notes Filed: 06/24/2025 12:31 Note Text: Assessment/Plan: 1. Ocular rosacea (Primary) Continue current management. Ordering new scleral that helps improve comfort d/t ocular rosacea and dry eye 2. Dry eye syndrome of bilateral lacrimal glands See plan 1 3. 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 Wears contact lenses Ordering new lenses. Billing two lenses to patient's insurance today. - OCT ANTERIOR SEGMENT CIRRUS OU (BOTH EYES) Mabel Stockton, OD RTC 4 weeks scleral eval/check [facility] 06-24-2025 History of Presen t illness Narrative Assessment/Plan: 1. Ocular rosacea (Primary) Continue current management. Ordering new scleral that helps improve comfort d/t ocular rosacea and dry eye 2. Dry eye syndrome of bilateral lacrimal glands See plan 1 3. 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 Wears contact lenses Ordering new lenses. Billing two lenses to patient's insurance today. - OCT ANTERIOR SEGMENT CIRRUS OU (BOTH EYES) Mabel Stockton, OD RTC 4 weeks scleral eval/check documented in this encounter [facility] 06-24-2025 Note Date of Procedure 06/24/2025. Notes Done over sclerals [facility] 05-21-2025 Note HNO ID: [id number] Author: MABEL STOCKTON, ERNIE Service: ? Author Type: GROUP CAPTAIN Type: Progress Notes Filed: 05/21/2025 16:25 Note Text: Assessment/Plan: 1. Ocular rosacea (Primary) Educated patient on improved overall findings on lids - less erythema and inflammation evident today. Patient feeling much better managed due to the contact lens use OU. Patient encouraged to continue current drop routine/regimen and CL wear. - OCT ANTERIOR SEGMENT CIRRUS OU (BOTH EYES) 2. Dry eye syndrome of bilateral lacrimal glands Patient educated on exam findings; continue serum/ PF artificial tears QID+ OU and restasis BID OU. Instructed patient to RTC prn if symptoms worsen, otherwise monitor complete exam. 3. 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 4. Ptosis of both eyelids Stable findings, monitor. 5. Wears contact lenses Holding on changing edges at this time - advised pt to try using less pressure when inserting, will make BC adjustments and recheck edges at next visit/follow up - can adjust edges if still blanching/struggling with redness. Suspect irritation/discomfort may be d/t inserting with too much force d/t it improving after 10-20 min of wear. Mabel Stockton, OD RTC 4 weeks for scleral evaluation (wear new lenses and bill lenses @ next visit) [facility] 05-21-2025 History of Presen t illness Narrative Assessment/Plan: 1. Ocular rosacea (Primary) Educated patient on improved overall findings on lids - less erythema and inflammation evident today. Patient feeling much better managed due to the contact lens use OU. Patient encouraged to continue current drop routine/regimen and CL wear. - OCT ANTERIOR SEGMENT CIRRUS OU (BOTH EYES) 2. Dry eye syndrome of bilateral lacrimal glands Patient educated on exam findings; continue serum/ PF artificial tears QID+ OU and restasis BID OU. Instructed patient to RTC prn if symptoms worsen, otherwise monitor complete exam. 3. 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 4. Ptosis of both eyelids Stable findings, monitor. 5. Wears contact lenses Holding on changing edges at this time - advised pt to try using less pressure when inserting, will make BC adjustments and recheck edges at next visit/follow up - can adjust edges if still blanching/struggling with redness. Suspect irritation/discomfort may be d/t inserting with too much force d/t it improving after 10-20 min of wear. Mabel Stockton, ERNIE RTC 4 weeks for scleral evaluation (wear new lenses and bill lenses @ next visit) documented in this encounter [facility] 05-21-2025 Note Date of Procedure 05/21/2025. Notes Done for scleral lens fit evaluation [facility] 04-09-2025 Telephone encounter Note LV: 02/08/24 FV: None Patient's request for medication is as follows: Requested Prescriptions Pending Prescriptions Disp Refills doxycycline monohydrate 50 mg tablet [Pharmacy Med Name: DOXYCYCLINE MONO 50 MG TABLET] 60 tablet 5 Sig: take 1 tablet by mouth twice a day Prescription(s) as above. Please process accordingly. Hilario Izquierdo MD filed at 02/08/2024 10:59 AM Status: Signed Encounter Diagnosis ICD-10-CM 1. Dry eye syndrome of bilateral lacrimal glands H04.123 2. 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 Ptosis of both eyelids H02.403 4. Other chronic allergic conjunctivitis of both eyes H10.45 30-year history soft contact lens wear Dry eye symptoms/ocular surface discomfort began approximately 10+ years ago Previously seen by Dr. Abraham in [address] Flores for second opinion regarding filamentary keratitis Associated dry eye symptoms include burning, FBS, ene/gritty sensation, puffy eyelids, and occasional mucus discharge. Past treatment has included, 3 amniotic membranes, Restasis, doxycycline, punctal plugs, and acetylcysteine (some burning, maybe helped shortterm) GTTS: Klarity- C BID OU (cyclosporine 0.1%) -- changed from restasis (started in 2011) to CSA 0.1% approx 2-3 years ago Serum drops 4-6x daily OD only -- x 1 year -- some relief Erythromycin ointment once nightly OD Artificial tears several times daily OU Scattered filaments right eye greater than left Mechanical. Punctate erosion superiorly upper third OU consistent with irritative reaction to tarsal conjunctiva, possible component of eye rubbing Recommend restart doxycycline 50 g twice daily Recommend repeat trial of topical steroid in the form of extra ointment nightly Recommend start Cosopt twice daily OU based on history of steroid response, per patient increased to 30 to 40 mmgHG prior to starting treatment in the past Can review records from Dr. Flores, would need IOP monitoring consider scleral lens eval (Dr. Stockton or Andrew) for skilled nursing surface comfort if interested I have confirmed and edited as necessary the relevant ophthalmic history, ROS, and the neuro exam findings as obtained by others. I have seen and examined this patient. I have discussed the case and the management of this patient's care with the Resident/Fellow, if applicable. I also have reviewed and agree with the assessment and plan as stated above and agree with all of its relevant components. Hilario Schwartz MD [facility] 04-09-2025 Miscellaneous Notes LV: 02/08/24 FV: None Patient's request for medication is as follows: Requested Prescriptions Pending Prescriptions Disp Refills doxycycline monohydrate 50 mg tablet [Pharmacy Med Name: DOXYCYCLINE MONO 50 MG TABLET] 60 tablet 5 Sig: take 1 tablet by mouth twice a day Prescription(s) as above. Please process accordingly. Hilario Izquierdo MD filed at 02/08/2024 10:59 AM Status: Signed Encounter Diagnosis ICD-10-CM 1. Dry eye syndrome of bilateral lacrimal glands H04.123 2. 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 Ptosis of both eyelids H02.403 4. Other chronic allergic conjunctivitis of both eyes H10.45 30-year history soft contact lens wear Dry eye symptoms/ocular surface discomfort began approximately 10+ years ago Previously seen by Dr. Abraham in [address] Flores for second opinion regarding filamentary keratitis Associated dry eye symptoms include burning, FBS, ene/gritty sensation, puffy eyelids, and occasional mucus discharge. Past treatment has included, 3 amniotic membranes, Restasis, doxycycline, punctal plugs, and acetylcysteine (some burning, maybe helped shortterm) GTTS: Klarity- C BID OU (cyclosporine 0.1%) -- changed from restasis (started in 2011) to CSA 0.1% approx 2-3 years ago Serum drops 4-6x daily OD only -- x 1 year -- some relief Erythromycin ointment once nightly OD Artificial tears several times daily OU Scattered filaments right eye greater than left Mechanical. Punctate erosion superiorly upper third OU consistent with irritative reaction to tarsal conjunctiva, possible component of eye rubbing Recommend restart doxycycline 50 g twice daily Recommend repeat trial of topical steroid in the form of extra ointment nightly Recommend start Cosopt twice daily OU based on history of steroid response, per patient increased to 30 to 40 mmgHG prior to starting treatment in the past Can review records from Dr. Flores, would need IOP monitoring consider scleral lens eval (Dr. Stockton or Andrew) for skilled nursing surface comfort if interested I have confirmed and edited as necessary the relevant ophthalmic history, ROS, and the neuro exam findings as obtained by others. I have seen and examined this patient. I have discussed the case and the management of this patient's care with the Resident/Fellow, if applicable. I also have reviewed and agree with the assessment and plan as stated above and agree with all of its relevant components. Hilario Schwartz MD documented in this encounter [facility] 03-17-2025 Radiology Diagnostic study note [facility] Imaging Services [address], [place] [address] Abdomen Limited MR#: [id number] Acct: [id number] Name: RICH WHITE Rep #: [id number] : [id number] M 59 From: Robbie Montiel MD PCP: Dr. Darwin Liu MD Status: RE G CLI Study:Abdomen Limited Date of Exam: 03/06 12/31 Exam# [id number] Ordering Dr: Darwin Liu MD PROCEDURE: ABDOMEN LIMITED 03/17/2025 REASON FOR EXAM: ELEVATED LFTS COMPARISON: None FINDINGS: Liver: Diffusely echogenic suggesting fatty infiltration. Liver measures 17.9 cm. Upper limits of normal. There is a 1.3 cm x 1.6 cm x 1.8 cm cyst in the right lobe of the liver. Gallbladder: No stones, sludge, wall thickening or tenderness. Common bile duct: Normal measuring 4.0 mm . Pancreas: Visualized portions are sonographically unremarkable. Other: Visualized portions of the right kidney are unremarkable. No right upperquadrant ascites. US/Abdomen Limited IMPRESSION: Borderline hepatomegaly and diffuse fatty infiltration of the liver. There is a 1.3 cm x 1.6 cm 1.8 cm cyst in the right lobe of the liver. Reading Location: [id number] CC: Dr. Darwin Liu MD ~ [employer]ishing [employer] Deckhand: Signed [facility] 10-16-2024 Telephone encounter Note LV: 02/08/24 FV: None Patient's request for medication is as follows: Requested Prescriptions Pending Prescriptions Disp Refills Doxycycline Monohydrate 50 mg tablet [Pharmacy Med Name: DOXYCYCLINE MONO 50 MG TABLET] 60 tablet 5 Sig: take 1 tablet by mouth twice a day Prescription(s) as above. Please process accordingly. Hilario Izquierdo MD filed at 02/08/2024 10:59 AM Status: Signed Encounter Diagnosis ICD-10-CM 1. Dry eye syndrome of bilateral lacrimal glands H04.123 2. 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 Ptosis of both eyelids H02.403 4. Other chronic allergic conjunctivitis of both eyes H10.45 30-year history soft contact lens wear Dry eye symptoms/ocular surface discomfort began approximately 10+ years ago Previously seen by Dr. Abraham in [address] Flores for second opinion regarding filamentary keratitis Associated dry eye symptoms include burning, FBS, ene/gritty sensation, puffy eyelids, and occasional mucus discharge. Past treatment has included, 3 amniotic membranes, Restasis, doxycycline, punctal plugs, and acetylcysteine (some burning, maybe helped shortterm) GTTS: Klarity- C BID OU (cyclosporine 0.1%) -- changed from restasis (started in 2011) to CSA 0.1% approx 2-3 years ago Serum drops 4-6x daily OD only -- x 1 year -- some relief Erythromycin ointment once nightly OD Artificial tears several times daily OU Scattered filaments right eye greater than left Mechanical. Punctate erosion superiorly upper third OU consistent with irritative reaction to tarsal conjunctiva, possible component of eye rubbing Recommend restart doxycycline 50 g twice daily Recommend repeat trial of topical steroid in the form of extra ointment nightly Recommend start Cosopt twice daily OU based on history of steroid response, per patient increased to 30 to 40 mmgHG prior to starting treatment in the past Can review records from Dr. Flores, would need IOP monitoring consider scleral lens eval (Dr. Stockton or Andrew) for skilled nursing surface comfort if interested I have confirmed and edited as necessary the relevant ophthalmic history, ROS, and the neuro exam findings as obtained by others. I have seen and examined this patient. I have discussed the case and the management of this patient's care with the Resident/Fellow, if applicable. I also have reviewed and agree with the assessment and plan as stated above and agree with all of its relevant components. Hilario Schwartz MD [facility] 10-16-2024 Miscellaneous Notes LV: 02/08/24 FV: None Patient's request for medication is as follows: Requested Prescriptions Pending Prescriptions Disp Refills Doxycycline Monohydrate 50 mg tablet [Pharmacy Med Name: DOXYCYCLINE MONO 50 MG TABLET] 60 tablet 5 Sig: take 1 tablet by mouth twice a day Prescription(s) as above. Please process accordingly. Hilario Izquierdo MD filed at 02/08/2024 10:59 AM Status: Signed Encounter Diagnosis ICD-10-CM 1. Dry eye syndrome of bilateral lacrimal glands H04.123 2. 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 Ptosis of both eyelids H02.403 4. Other chronic allergic conjunctivitis of both eyes H10.45 30-year history soft contact lens wear Dry eye symptoms/ocular surface discomfort began approximately 10+ years ago Previously seen by Dr. Abraham in [address] Flores for second opinion regarding filamentary keratitis Associated dry eye symptoms include burning, FBS, ene/gritty sensation, puffy eyelids, and occasional mucus discharge. Past treatment has included, 3 amniotic membranes, Restasis, doxycycline, punctal plugs, and acetylcysteine (some burning, maybe helped shortterm) GTTS: Klarity- C BID OU (cyclosporine 0.1%) -- changed from restasis (started in 2011) to CSA 0.1% approx 2-3 years ago Serum drops 4-6x daily OD only -- x 1 year -- some relief Erythromycin ointment once nightly OD Artificial tears several times daily OU Scattered filaments right eye greater than left Mechanical. Punctate erosion superiorly upper third OU consistent with irritative reaction to tarsal conjunctiva, possible component of eye rubbing Recommend restart doxycycline 50 g twice daily Recommend repeat trial of topical steroid in the form of extra ointment nightly Recommend start Cosopt twice daily OU based on history of steroid response, per patient increased to 30 to 40 mmgHG prior to starting treatment in the past Can review records from Dr. Flores, would need IOP monitoring consider scleral lens eval (Dr. Stockton or Andrew) for skilled nursing surface comfort if interested I have confirmed and edited as necessary the relevant ophthalmic history, ROS, and the neuro exam findings as obtained by others. I have seen and examined this patient. I have discussed the case and the management of this patient's care with the Resident/Fellow, if applicable. I also have reviewed and agree with the assessment and plan as stated above and agree with all of its relevant components. Hilario Schwartz MD documented in this encounter [facility] 04-26-2024 Instructions Mabel Stockton, OD - 04/26/2024 11:14 AM EDT CONTACT LENS EDUCATION: Re-wetting drops can be used as desired while you are wearing the lenses to hydrate the lenses and reduce dryness and foggy vision. It is important to take proper care of your lenses and to avoid infection that could lead to permanent damage to your eye and/or permanent vision loss. DO NOT sleep in lenses overnight DO NOT use lenses for longer than recommended by your doctor DO NOT use tap water or saliva to clean your lenses. DO NOT use a dirty or old case. Contact lens cases should be replaced every 3 months DO NOT swim or shower while wearing contact lenses ALWAYS use a multipurpose or peroxide based disinfecting systems to clean lenses ALWAYS wash your hands before inserting and removing your contact lenses ALWAYS have a pair of back-up glasses or extra set of contact lenses available in case you lose or need to remove your contacts Please call your provider if you have any complications or signs of infection, and stop wearing your contact immediately Non-compliance with these recommendations may result in serious eye infections, corneal scarring, loss of vision, or even blindness. We recommend not sleeping in contact lenses and replacing the storage case every three months. If pain, redness, light sensitivity, discharge, or intolerance occur, discontinue contact lens wear and call the office as soon as possible. documented in this encounter [facility] 04-26-2024 History of Presen t illness Narrative Assessment/Plan: 1. Wears contact lenses Educated patient on findings today. Finalized CL Rx and educated patient on proper wear and care for contact lenses. There is a risk for red eye, infection and possible permanent damage to eye with abuse of contacts. Do not sleep in lenses and do not use tap water with lenses or swim in lenses. Replace lenses as indicated by your doctor. Only approved solution should be used when handling contacts. Always wash your hands before inserting or removing contacts. Remove contact and return to clinic with redness/pain/sudden changes to vision. It is important to have a backup pair of eyeglasses to use if needed. Ophthalmology Exam Final Contact Lens Rx Brand Base Curve Diameter Sphere Lens Addl. Specs Right VS Scleral;Synergeyes 8.4 16.0 -1.75 3400; 36-46 hydrapeg; optimum extreme blue Left VS Scleral;Synergeyes 8.4 16.0 -0.25 3400; 36-44 hydrapeg; optimum extreme blue, mini monovision Expiration Date: 04/26/2025 Replacement: Yearly Wearing Schedule: Daily Wear Edited by: Mabel Stockton, OD Ordering new lens OS d/t burning sensation on insertion of lens for 5-10 minutes. Changing power to give mild monovision. If new lens helps burning and doing well with power change, okay to continue. If power change is causing too much blur, let me know and we will do a lens exchange with his current -0.50 lens OS to remake the power. Mabel Stockton, ERNIE RTC 04/2025 Scleral CL evaluation documented in this encounter [facility] 04-03-2024 History of Presen t illness Narrative Assessment/Plan: 1. 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 Epilated lash x 2 without complication. Monitor. - EPILATION OF TRICHIASIS, FORCEPS 2. Ocular rosacea Continue current treatment regimen. 3. Dry eye syndrome of bilateral lacrimal glands Continue current treatment regimen. 4. Wears contact lenses Educated pt on findings. Patient has excess conj/conj chalasis OD>OS. Suspect causing part of difficulty with FBS sometimes. Continue using lubrication. Adjusting fit and advised to not put too much pressure when inserting. Mabel Stockton, OD RTC 3 weeks scleral evaluation documented in this encounter [facility] 04-03-2024 Note Date of Procedure 04/03/2024 [place] Protocol Safety Checklist Sign In: Patient name, date of , allergies and intended procedure verified. Provider Confirms: Correct side/site marked visible. No relevant labs, photos, and/or imaging studies to review. No medications required for procedure. No fire risk. No implants. Location Right lower lid. Procedure Notes Epilation of lash(es) was performed at slitlamp with forceps without complication. Sign Out All instruments, equipment, and/or possible retained foreign bodies accounted for. No specimens. [facility] 03-11-2024 History of Presen t illness Narrative Assessment/Plan: 1. Ocular rosacea Patient had successful I&R. Cleaning and handling instructions given to patient and discussed. Educated patient on findings. Educated patient to work up to wearing lenses throughout the day. May need to remove to clean. Continue using drops (PF tears and serum tears) over lens. Okay to use tears in bowl to fill. Let me know if fogging occurs with current and new lens. Shipping new lens to patient's home address. Billing lenses medically today. Changing peripheral curve. Leaving clearance the same for now. Will see how lens settles. Consider monovision after final fit achieved. 2. Dry eye syndrome of bilateral lacrimal glands See plan 1 3. 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 Wears contact lenses Mailing new lenses to patient. Mabel Stockton, ERNIE RTC Scleral evaluation in 3 weeks (wear new lenses) documented in this encounter [facility] 03-11-2024 Instructions Mabel Stockton, OD - 03/11/2024 1:51 PM EDT Preservative Free Saline options: LacriPure PuriLens ScleralFill OTC readers: +2.00 for reading +1.25 for computer documented in this encounter [facility] 02-21-2024 History of Presen t illness Narrative Assessment/Plan: 1. Dry eye syndrome of bilateral lacrimal glands Educated patient on findings. No evident filaments today. Recommend patient continue current drop regimen. Discussed that scleral lenses may make eyes feel like they're less dry and irritated, but he still needs to use lubrication serum tears and Refresh PF tears over the contacts to prevent to surface from drying out. Patient expressed understanding and is aware he may not be able to achieve full relief of symptoms with sclerals, but it is definitely worth a try. Pt agrees and wants to try. Discussed cost and warranty period. Patient signed ABN for fitting and two lenses. Plan: Continue all current medications: Serum tears 4-6 times per day OU Doxycycline 50 mg 2 times daily (restarted with Dr Schwartz) OU Klarity C eye drops 2 times daily OU Abdoul/poly/dex ointment QHS OU Cosopt once daily OU IOP in normal range with cosopt use d/t hx of steroid response. Patient reports burning when using, but resolve. If becomes persistent/longstanding or signs of an allergy occur, please let me or Dr Schwartz know. Ordering two sclerals for patient. RTC in 2.5 weeks for I&R and evaluation. 2. Meibomian gland 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 See plan 1 3. Ocular rosacea See plan 1 4. Ptosis of both eyelids Not hindering ability to insert lenses today. OD>OS. 5. Wears contact lenses See plan 1. Mabel Stockton, OD RTC 03/11/2024 scleral evaluation and I&R documented in this encounter [facility] 02-08-2024 History of Presen t illness Narrative Encounter Diagnosis ICD-10-CM 1. Dry eye syndrome of bilateral lacrimal glands H04.123 2. 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 Ptosis of both eyelids H02.403 4. Other chronic allergic conjunctivitis of both eyes H10.45 30-year history soft contact lens wear Dry eye symptoms/ocular surface discomfort began approximately 10+ years ago Previously seen by Dr. Abraham in [address] Flores for second opinion regarding filamentary keratitis Associated dry eye symptoms include burning, FBS, ene/gritty sensation, puffy eyelids, and occasional mucus discharge. Past treatment has included, 3 amniotic membranes, Restasis, doxycycline, punctal plugs, and acetylcysteine (some burning, maybe helped shortterm) GTTS: Klarity- C BID OU (cyclosporine 0.1%) -- changed from restasis (started in 2011) to CSA 0.1% approx 2-3 years ago Serum drops 4-6x daily OD only -- x 1 year -- some relief Erythromycin ointment once nightly OD Artificial tears several times daily OU Scattered filaments right eye greater than left Mechanical. Punctate erosion superiorly upper third OU consistent with irritative reaction to tarsal conjunctiva, possible component of eye rubbing Recommend restart doxycycline 50 g twice daily Recommend repeat trial of topical steroid in the form of extra ointment nightly Recommend start Cosopt twice daily OU based on history of steroid response, per patient increased to 30 to 40 mmgHG prior to starting treatment in the past Can review records from Dr. Flores, would need IOP monitoring consider scleral lens eval (Dr. Stockton or Andrew) for skilled nursing surface comfort if interested I have confirmed and edited as necessary the relevant ophthalmic history, ROS, and the neuro exam findings as obtained by others. I have seen and examined this patient. I have discussed the case and the management of this patient's care with the Resident/Fellow, if applicable. I also have reviewed and agree with the assessment and plan as stated above and agree with all of its relevant components. 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 Ptosis of both eyelids Unspecified ptosis of eyelid Other chronic allergic conjunctivitis of both eyes [facility] Dry eye syndrome of bilateral lacrimal glands- Primary Tear film insufficiency, unspecified Meibomian gland 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 Ocular rosacea Rosacea Ptosis of both eyelids Unspecified ptosis of eyelid Wears contact lenses Problems with sight [facility] Diagnosis Ocular rosacea- Primary Rosacea Dry eye syndrome of bilateral lacrimal glands Tear film insufficiency, unspecified Meibomian gland 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 Wears contact lenses Problems with sight [facility] Diagnosis 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- Primary Trichiasis of eyelid without entropion Ocular rosacea Rosacea Dry eye syndrome of bilateral lacrimal glands Tear film insufficiency, unspecified Wears contact lenses Problems with sight [facility] Diagnosis Wears contact lenses- Primary Problems with sight [facility] Diagnosis Ocular rosacea- Primary Rosacea Dry eye syndrome of bilateral lacrimal glands Tear film insufficiency, unspecified 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 Trichiasis of eyelid without entropion Ptosis of both eyelids Unspecified ptosis of eyelid Wears contact lenses Problems with sight [facility] Diagnosis Ocular rosacea- Primary Rosacea Dry eye syndrome of bilateral lacrimal glands Tear film insufficiency, unspecified 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 Trichiasis of eyelid without entropion Wears contact lenses Problems with sight [facility] Diagnosis Wears contact lenses- Primary Problems with sight [facility] referral (narrative)No reason for referral information availableWLima City [facility] Work Phone: Advance Directives No Advanced Directives Records Found Advance Directive Response Recorded Date/ Time Living Will Yes August 15 12:07pm Power of Solid Waste Collector Yes August 15, 2018 12:07pm Advance Directive Response Recorded Date/ Time Living Will Yes August 15 11:07am Power of Solid Waste Collector Yes August 15, 2018 11:07am Chief Complaint and Reason for Visit Chief Complaint POLYNEUROPATHY Chief Complaint POLYNEUROPATHY EORDER Chief Complaint POLYNEUROPATHY EORDER CONCERNED WITH SINUS INFECTION/SORE THROAT/COUGH Reason for Visit Acute bronchitis, un specified URI (upper respiratory infection) Chief Complaint SERUM TEARS Chief Complaint SERUM TEARS EORDER Chief Complaint EORDER SERUM Chief Complaint SERUM EORDER Chief Complaint Admit Date Filamentary keratitis, 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 Chief Complaint Admit Date Filamentary keratitis, 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 ABN BLOOD CHEMISTRY March 17, 2025 7:22a m Summary Purpose Family History No Family History Records FoundNo Family History Records Found Additional Source Comments Goals (unrecognized section and content) Goals may be documented in a n alternate sectionGoals may be documented in an alternate sectionGoals may be documented in an alternate sectionGoals may be documented in an alternate sectionGoals may be documented in an alternate sectionGoals may be documented in an alternate sectionGoals may be documented in an alternate sectionGoals may be documented in an alternate sectionGoals may be documented in an alternate sectionGoals may be documented in an alternate sectionGoals may be documented in an alternate section Care Teams (unrecognized sec tion and content) Team Status: Active Member Role Status Dates Dr. Rupesh Crowell MD Family Provider Active Dr. Darwin Liu MD Primary Care Provider Active Team Status: Inactive Member Role Status Dates Dr. Darwin Liu MD Primary Care Pr ovider, Attending Provider, Referring Provider Active Team Status: Inactive Member Role Status Dates Dr. Darwin Liu MD Primary Care Provider, Referr ing Provider Active Rosendo Riggins PA, PA Attending Provider Active Team Status: Inactive Member Role Status Dates Dr. Darwin Liu MD Primary Care Provider Active Dr. Sebastian Perez MD Attending Provider, Referring Pro vider Active Team Status: Inactive Member Role Status Dates Dr. Darwin Liu MD Primary Care Provider Active Dr. Faizan Flores MD Attending Provider, Referring P rovider Active Wound Care Rn Relationship Specialty Start Date End Date Faizan Flores [address] [place] [address] Referring Ophthalmology 11/28/23 Wound Care Rn Relationship Specialty Start Date End Date Faizan Flores [address] [place] [address] Referring Ophthalmology 11/28/23 Wound Care Rn Relationship Specialty Start Date End Date Darwin Liu MD [address] [facility] [address] [place] [address] PCP - General Family Medicine 03/11/24 Faizan Flores [address] [place] [address] Referring Ophthalmology 11/28/23 Wound Care Rn Relationship Specialty Start Date End Date Darwin Liu MD [address] [facility] [address] [place] [address] PCP - General Family Medicine 03/11/24 Faizan Flores [address] [facility] [place] [place] [address] Referring Ophthalmology 11/28/23 Wound Care Rn Relationship Specialty Start Date End Date Darwin Liu MD [address] [facility] [address] [place] [address] PCP - General Family Medicine 03/11/24 Faizan Flores [address] [facility] [place] [place] [address] Referring Ophthalmology 11/28/23 Wound Care Rn Relationship Specialty Start Date End Date Darwin Liu MD [address] [facility] [address] [place] [address] PCP - General Family Medicine 03/11/24 Faizan Flores MD [address] [place] [address] Referring Ophthalmology 11/28/23 Team Status: Active Member Role Status Dates Dr. Darwin Liu MD Primary Care Provider Active Team Status: Inactive Member Role Status Dates Dr. Darwin Liu MD Primary Care Provider Active Start: January 17, 2025 End: January 17, 2025 Dr. Faizan Flores MD Attending Provider Active Start: January 17, 2025 End: January 17, 2025 Dr. Faizan Flores MD Referring Provider Active Start: January 17, 2025 End: January 17, 2025 Team Status: Inactive Member Role Status Dates Dr. Darwin Liu MD Primary Care Provider Active Start: March 07, 2025 End: March 07, 2025 Dr. Darwin Liu MD Attending Provider Active Start: March 07, 2025 End: March 07, 2025 Dr. Darwin Liu MD Referring Provider Active Start: March 07, 2025 End: March 07, 2025 Team Status: Inactive Member Role Status Dates Dr. Darwin Liu MD Primary Care Provider Active Start: March 17, 2025 End: March 17, 2025 Dr. Darwin Liu MD Attending Provider Active Start: March 17, 2025 End: March 17, 2025 Dr. Darwin Liu MD Referring Provider Active Start: March 17, 2025 End: March 17, 2025 Wound Care Rn Relationship Specialty Start Date End Date Darwin Liu MD [address] [facility] [address] [place], [place] [address] PCP - General Family Medicine 03/11/24 Faizan Flores MD [address] [facility], [place] [id number] Referring Ophthalmology 11/28/23 Wound Care Rn Relationship Specialty Start Date End Date Darwin Liu MD [address] [facility] [address] [place], [place] [address] PCP - General Family Medicine 03/11/24 Faizan Flores MD [address] [facility], [place] [address] Referring Ophthalmology 11/28/23 Wound Care Rn Relationship Specialty Start Date End Date Darwin Liu MD [address] [facility] [address] [place], [place] [id number] PCP - General Family Medicine 03/11/24 Faizan Flores MD [address] [facility], [place] [id number] Referring Ophthalmology 11/28/23 Source Comments (unrecognize d section and content) In the event this informatio n is protected by the Federal Confidentiality of Alcohol and Drug Abuse Patient Records regulations: The Federal rules restrict any use of the information to criminally investigate or prosecute any alcohol or drug abuse patient.[facility] the event this information is protected by the Federal Confidentiality of Alcohol and Drug Abuse Patient Records regulations: The Federal rules restrict any use of the information to criminally investigate or prosecute any alcohol or drug abuse patient.[facility] HospitalIn the event this information is protected by the Federal Confidentiality of Alcohol and Drug Abuse Patient Records regulations: The Federal rules restrict any use of the information to criminally investigate or prosecute any alcohol or drug abuse patient.[facility] HospitalIn the event this information is protected by the Federal Confidentiality of Alcohol and Drug Abuse Patient Records regulations: The Federal rules restrict any use of the information to criminally investigate or prosecute any alcohol or drug abuse patient.[facility] HospitalIn the event this information is protected by the Federal Confidentiality of Alcohol and Drug Abuse Patient Records regulations: The Federal rules restrict any use of the information to criminally investigate or prosecute any alcohol or drug abuse patient.[facility] HospitalIn the event this information is protected by the Federal Confidentiality of Alcohol and Drug Abuse Patient Records regulations: The Federal rules restrict any use of the information to criminally investigate or prosecute any alcohol or drug abuse patient.[facility] HospitalIn the event this information is protected by the Federal Confidentiality of Alcohol and Drug Abuse Patient Records regulations: The Federal rules restrict any use of the information to criminally investigate or prosecute any alcohol or drug abuse patient.[facility] HospitalIn the event this information is protected by the Federal Confidentiality of Alcohol and Drug Abuse Patient Records regulations: The Federal rules restrict any use of the information to criminally investigate or prosecute any alcohol or drug abuse patient.[facility] HospitalIn the event this information is protected by the Federal Confidentiality of Alcohol and Drug Abuse Patient Records regulations: The Federal rules restrict any use of the information to criminally investigate or prosecute any alcohol or drug abuse patient.[facility] HospitalIn the event this information is protected by the Federal Confidentiality of Alcohol and Drug Abuse Patient Records regulations: The Federal rules restrict any use of the information to criminally investigate or prosecute any alcohol or drug abuse patient.[facility] Reason for Visit (unrecogniz ed section and content) Reason Comments Filamentary keratitis Reason Comments Contact lens evaluation Reason Comments Contact lens evaluation I& R Class/ Eval Reason Comments scleral lens evaluation Right lens Reason Comments Refill Request Reason Comments Comprehensive Health Assessment Contact lens evaluation Reason Comments Contact lens evaluation Scleral lenses Reason Comments Follow Up For scleral eval/check (unrecognized sect ion and content) No Status Records FoundNo Status Records Found INFORMATION SOURCE (unrecogn ized section and content) DATE CREATED AUTHOR 09/10/2025 [facility] DATE CREATED AUTHOR AUTHOR'S KARAN OCONNOR 09/13/2025 [facility] FOR RECORDS PERTAINING TO PATIENTS WHO ARE [...] BE BASED ON THE PRIMARY CLINICAL RECORDS. [facility]. provides no warranty or guarantee of the accuracy or completeness of information in this document.
[2025-10-03 11:55] LABS: SERUM TEARS COLLECTION SPECIMEN PROCESSED
== END | disposition home or self-care (01) ==
LOC: LAB 09:49
PROVIDERS: PCP Family Medicine; Referring Provider Ophthalmology; Visit Provider Ophthalmology
DX: H16.141 Punctate keratitis, right eye (principal)